=== PATIENT | male | born 1960 | race African-American/Black ===

== ENCOUNTER 2020-11-14 01:07 | Inpatient (IN) | payer MEDICARE, MEDICAID ==
[~2020-11-14] VITALS: Ht 152.4 cm; Wt 62.6 kg
--- NOTE | 2020-11-14 01:49 | Emergency Room Report ---
History of Present Illness General Chief Complaint: Generalized Weakness Source: Patient Present Illness HPI Disclaimer: Please note that this report is being documented using [employer] technology. This can lead to erroneous entry secondary to incorrect interpretation by the dictating instrument. HPI: 60-year-old male history of diabetes presents for generalized weakness. Patient was waiting outside the hospital for several hours and then checked in complaining of chills. States he is a diabetic consent not had insulin for 1 day. Reports shaking chills. Denies fever. Denies chest pain, palpitations, shortness of breath. Reports intermittent cough. Denies nausea or vomiting. States he has not been eating much lately. Reportedly, someone called this hospital several days ago booking for this patient. He may have been missing for the past few days. He states he lives with his brother but he is a very poor historian. He does not provide much specific information. PMH: Diabetes PSH: Reviewed Allergies: Denied Social Hx: Reviewed Allergies: Coded Allergies: No Known Allergies (Unverified , 11/14/20) COVID-19 Screening Contact w/high risk pt: No Experienced COVID-19 symptoms?: Yes COVID-19 Testing performed TOWER DIRECTOR: No Nursing Documentation-PMH Hx Diabetes: Yes Review of Systems All Other Systems: negative except mentioned in HPI Physical Exam Vital Signs Date Time Temp Pulse Resp B/P (MAP) Pulse Ox O2 Delivery O2 Flow Rate FiO2 11/14/20 01:33 99.3 110 18 155/84 (107) 94 Room Air General: Awake and alert, tremulous HEENT: NC/AT. EOMI. Cardiovascular: Tachycardia. S1 and S2 normal. No murmur appreciated Resp: Normal work of breathing. No cough, wheezing or crackles appreciated Abdomen: Abdomen is soft, nondistended. Nontender Skin: Intact. No abrasions, laceration or rash over the exposed skin MSK: Normal tone and bulk. Moving all extremities. No obvious deformity. Neuro: Awake and alert. Mentating appropriately. Procedures Critical Care Time Critical Care Time Total critical care time: Approximately 45 minutes Due to a high probability of clinically significant, life threatening deterioration, the patient required the highest level of preparedness to intervene emergently and I personally spent this critical care time directly and personally managing the patient. This critical care time included obtaining a history, examining the patient, pulse oximetry, ordering and reviewing studies, ordering treatments, evaluating response to treatment and updating management plan as needed, frequent reassessment and discussion with other providers as well as arranging for ultimate disposition. This critical to care time was performed to assess and manage the high probability of life-threatening deterioration that could result in multiorgan failure. This critical care time is separate from the separately billable procedures and treating other patients. Medical Decision Making Diagnostic Impression: Primary Impression: UTI (urinary tract infection) Additional Impressions: Pneumonia Person under investigation for COVID-19 Acute kidney failure Hyperkalemia ER Course 60-year-old male presents for evaluation of generalized weakness and cough. EKG is nonischemic shows slightly peaked T waves. Radiologist interpretation chest x-ray concerning for left lobe infiltrate versus edema. Patient also has evidence of urinary tract infection. Started on ceftriaxone azithromycin. White count within normal limits. Patient appears to be in renal failure with elevated potassium. Given calcium, insulin with dextrose, bicarb. Urine electrolytes sent. Continue IV fluids. Admitted to Dr. Paul who is panel physician today. Laboratory Tests Test 11/14/20 01:58 11/14/20 02:30 Urine Color Yellow Urine Appearance Slightly cloudy Urine pH 5 (4.5-8.0) Urine Specific [place] 1.025 (1.005-1.035) Urine Protein 4+ (NEGATIVE) H Urine Glucose (UA) Negative (NEGATIVE) Urine Ketones Negative (NEGATIVE) Urine Blood 2+ (NEGATIVE) H Urine Nitrite Negative (NEGATIVE) Urine Bilirubin Negative (NEGATIVE) Urine Urobilinogen Normal MG/DL (0.0-1.0) Urine Leukocyte Esterase Negative (NEGATIVE) Urine RBC 2-4 /HPF (0 - 0) H Urine WBC 0-2 /HPF (0 - 0) Urine Squamous Epithelial Cells Occasional /LPF Urine Amorphous Sediment Few /LPF (NONE) H Urine Bacteria Moderate /HPF (NONE) H Urine Hyaline Casts 0-2 /LPF (NONE) H Urine Opiates Screen Negative (NEGATIVE) Urine Barbiturates Screen Negative (NEGATIVE) Phencyclidine (PCP) Screen Negative (NEGATIVE) Urine Amphetamines Screen Negative (NEGATIVE) Urine Benzodiazepines Screen Negative (NEGATIVE) Urine Cocaine Screen Negative (NEGATIVE) Urine Marijuana (THC) Screen Negative (NEGATIVE) White Blood Count 8.1 K/UL (4.8-10.8) Red Blood Count 5.96 M/UL (4.70-6.10) Hemoglobin 12.8 G/DL (14.2-18.0) L Hematocrit 43.4 % (42.0-52.0) Mean Corpuscular Volume 73 FL (80-99) L Mean Corpuscular Hemoglobin 21.5 PG (27.0-31.0) L Mean Corpuscular Hemoglobin Concent 29.5 G/DL (32.0-36.0) L Red Cell Distribution Width 14.3 % (11.6-14.8) Platelet Count 209 K/UL (150-450) Mean Platelet Volume 8.7 FL (6.5-10.1) Neutrophils (%) (Auto) 78.7 % (45.0-75.0) H Lymphocytes (%) (Auto) 10.3 % (20.0-45.0) L Monocytes (%) (Auto) 10.2 % (1.0-10.0) H Eosinophils (%) (Auto) 0.1 % (0.0-3.0) Basophils (%) (Auto) 0.7 % (0.0-2.0) Sodium Level 140 MMOL/L (136-145) Potassium Level 5.8 MMOL/L (3.5-5.1) H Chloride Level 105 MMOL/L (98-107) Carbon Dioxide Level 19 MMOL/L (21-32) L Anion Gap 16 mmol/L (5-15) H Blood Urea Nitrogen 74 mg/dL (7-18) H Creatinine 5.2 MG/DL (0.55-1.30) H Estimated Glomerular Filtration Rate 13.8 mL/min (>60) Glucose Level 255 MG/DL (74-106) H Calcium Level 9.3 MG/DL (8.5-10.1) Total Bilirubin 0.5 MG/DL (0.2-1.0) Aspartate Amino Transferase (AST) 34 U/L (15-37) Alanine Aminotransferase (ALT) 23 U/L (12-78) Alkaline Phosphatase 70 U/L (46-116) Troponin I 0.010 ng/mL (0.000-0.056) Total Protein 8.6 G/DL (6.4-8.2) H Albumin 3.2 G/DL (3.4-5.0) L Globulin 5.4 g/dL Albumin/Globulin Ratio 0.6 (1.0-2.7) L Serum Alcohol < 3 mg/dL EKG Diagnostic Results Troponin ordered: Yes When was troponin ordered?: Nov 14, 2020 EKG Time: 01:54 Rate: normal Rhythm: NSR ST Segments: no acute changes Other Impression Sinus rhythm, left axis, normal intervals, no ST segment changes. Rhythm Strip Diag. Results Rhythm Strip Time: 01:54 EP Interpretation: yes Rate: 90s Rhythm: NSR, no PVC's, no ectopy Chest X-Ray Diagnostic Results Chest X-Ray Diagnostic Results : Chest X-Ray Ordered: Yes # of Views/Limited/Complete: 1 View Indication: Other - Cough EP Interpretation: Yes Interpretation: no effusion, no pneumothorax, other - Left lobe infiltrate per radiology Impression: Other - Left lobe infiltrate per radiology Electronically Signed by: Electronically signed by Dr. Christiano Pollack MD Last Vital Signs Date Time Temp Pulse Resp B/P (MAP) Pulse Ox O2 Delivery O2 Flow Rate FiO2 11/14/20 01:33 99.3 110 18 155/84 (107) 94 Room Air Disposition: ADMITTED INPATIENT Condition: Serious Referrals: NOT CHOSEN IPA/,REFERRING (PCP) Christiano Pollack MD Nov 14, 2020 01:49
--- NOTE | 2020-11-14 01:50 | NUR ---
ED Nurse Note: Patient came in the ED with complaints of generalized weakness. Patient is alert oriented times 2, disiorented to time and situation.
--- NOTE | 2020-11-14 01:55 | NUR ---
Patient is forgetfull
[2020-11-14 02:05] LABS: APPEARANCE,URINE SLIGHTLY CLOUDY; BILIRUBIN, URINE NEGATIVE (NEGATIVE); GLUCOSE, URINE (UA) NEGATIVE (NEGATIVE); KETONES,URINE NEGATIVE (NEGATIVE); LEUKOCYTE ESTERASE ,URINE NEGATIVE (NEGATIVE); NITRITE,URINE NEGATIVE (NEGATIVE); PH,URINE 5 (4.5-8.0); PROTEIN,URINE 4+ (NEGATIVE); UROBILINOGEN,URINE NORMAL MG/DL (0.0-1.0)
[2020-11-14 02:08] LABS: COLOR,URINE YELLOW
--- NOTE | 2020-11-14 02:23 | Diagnostic Imaging Report ---
EXAM: XR Chest, 1 View CLINICAL HISTORY: WEAK TECHNIQUE: Frontal view of the chest. COMPARISON: No relevant imaging studies available. FINDINGS: Cardiac, mediastinal, and hilar contours are unremarkable. Left mid/lower lobe hazy opacity. Right lung is clear. Suspect chronic irritation lung disease. No pneumothorax or large pleural effusion. No acute skeletal findings. IMPRESSION: Left mid/lower lobe hazy opacity, which may represent pleural fluid with adjacent atelectasis or infiltrate.
[2020-11-14 02:38] LABS: BASOPHILS % (AUTO) 0.7 % (0.0-2.0); EOSINOPHILS % (AUTO) 0.1 % (0.0-3.0); HEMATOCRIT 43.4 % (42.0-52.0); HEMOGLOBIN 12.8 G/DL (14.2-18.0); LYMPHOCYTES % (AUTO) 10.3 % (20.0-45.0); MEAN CORPUSCULAR VOLUME 73 FL (80-99); MONOCYTES % (AUTO) 10.2 % (1.0-10.0); NEUTROPHILS % (AUTO) 78.7 % (45.0-75.0); PLATELET COUNT 209 K/UL (150-450); RED BLOOD COUNT 5.96 M/UL (4.70-6.10); RED CELL DISTRIBUTION WIDTH 14.3 % (11.6-14.8); WHITE BLOOD COUNT 8.1 K/UL (4.8-10.8)
[2020-11-14] MEDS ORDERED: Azithromycin 500 MG in NS 275 ML IV ONE (02:45)
[2020-11-14] MEDS ORDERED: cefTRIAXone 1 GM in NS 55 ML IVPB ONE (02:45)
[2020-11-14 02:56] LABS: CALCIUM 9.3 MG/DL (8.5-10.1); CREATININE 5.2 MG/DL (0.55-1.30); POTASSIUM 5.8 MMOL/L (3.5-5.1)
[2020-11-14 03:00] LABS: ALBUMIN 3.2 G/DL (3.4-5.0); ALBUMIN/GLOBULIN RATIO 0.6 (1.0-2.7); BILIRUBIN,TOTAL 0.5 MG/DL (0.2-1.0)
--- NOTE | 2020-11-14 03:00 | NUR ---
Patient is in bed resting, in no acute distress. vitals stable. Denies any pain or discomfort.
[2020-11-14] MEDS ORDERED: Sodium Bicarbonate 50ml Carp IV ONE (03:15)
[2020-11-14] MEDS ORDERED: Calcium Gluconate 1gm/10ml vial IVP ONE (03:15)
[2020-11-14] MEDS ORDERED: Sodium Chloride 2,200 ML IVLG ONE (03:15)
[2020-11-14] MEDS ORDERED: Insulin Human Regular 100units/ml 3ml IV ONE (03:15)
[2020-11-14] MEDS ORDERED: Sodium Polystyrene Sulfonate 15gm Powder ORAL ONE (03:30)
[2020-11-14] MEDS ORDERED: Morphine Sulfate 2mg/ml Inj(IV/IM USE ONLY) IVP PRN (03:45)
--- NOTE | 2020-11-14 04:45 | NUR ---
ED Nurse Note: Report given to Lul
--- NOTE | 2020-11-14 04:50 | NUR ---
Bravo cath inserted, well tolerated.
--- NOTE | 2020-11-14 05:00 | NUR ---
NURSE NOTES: Pt received from MILTON Escobar. Pt is resting comfortably in bed c/o of chilliness with shaking. Pt is A/Ox4 with periods of confusion; pt is on bedrest due to weakness and forgets limitations. Pt has cardiac monitoring ST and asymptomatic. Pt is breathing unlabored on RA. Pt admitting VS T 100.2 T103 BP166/90 O296% R 22. Pt has RAC22G SL patent with dressing dry and intact. Bed is locked in lowest position with call light within reach. Dr Paul has been messaged for admitting orders and awaiting response. Will continue to monitor.
--- NOTE | 2020-11-14 05:00 | NUR ---
Patient transferred to [facility].
[2020-11-14 05:18] VITALS: BP 145/92
[2020-11-14 05:35] VITALS: BP 166/90
--- NOTE | 2020-11-14 07:01 | NUR ---
NURSE HAND-OFF REPORT: Important Events on Shift:Pt admitted to tele. Awaiting callback from MD for orders. Pt had fever 100.2. Patient Status: Stable Diet: TBD Pending Orders: Pending Results/Labs: Pending MD notification: Latest Vital Signs: Temperature 100.2 , Pulse 110 , B/P 166 /90 , Respiratory Rate 22 , O2 SAT 96 , Room Air, O2 Flow Rate . Vital Sign Comment: VSS EKG Rhythm: Sinus Tachycardia Rhythm change?: N MD Notified?: - MD Response: Latest [place] Fall Score: 60 Fall Risk: High Risk Safety Measures: Call light Within Reach, Bed Alarm Zone 2, Side Rails Side Rails x2, Bed position Low and Locked. Fall Precautions: Yellow Socks Door Sign Report given to MILTON Rea.
[2020-11-14 08:00] VITALS: BP 137/95
[2020-11-14] MEDS ORDERED: Varibar Nectar 240ml MC PRN (08:00)
[2020-11-14] MEDS ORDERED: Varibar Pudding 230ml MC PRN (08:00)
[2020-11-14] MEDS ORDERED: Varibar Honey 250ml MC PRN (08:00)
[2020-11-14] MEDS ORDERED: Varibar Thin Liquid powder 148gm MC PRN (08:00)
--- NOTE | 2020-11-14 08:08 | NUR ---
NURSE NOTES: Patient seen in bed in semifowlers position with no acute signs of distress and no complaints of pain 0/10. The patient is on room air with oxygen saturation within normal limits. The patient has a R AC 22G IV that is clean patent intact and saline locked. The patient bed is in lowest position, locked, side rails x3, bed alarm in zone 1 and cll light within reach.
--- NOTE | 2020-11-14 10:27 | Consultation ---
Consult Note Consult Note Asked to evaluate the patient at the request of HPI: 60-year-old male history of diabetes presents for generalized weakness. Patient was waiting outside the hospital for several hours and then checked in complaining of chills. States he is a diabetic consent not had insulin for 1 day. Reports shaking chills. Denies fever. Denies chest pain, palpitations, shortness of breath. Reports intermittent cough. Denies nausea or vomiting. States he has not been eating much lately. Reportedly, someone called this hospital several days ago booking for this patient. He may have been missing for the past few days. He states he lives with his brother but he is a very poor historian. He does not provide much specific information. PMH: Diabetes PSH: Reviewed Allergies: Denied Social Hx: Reviewed Allergies: No Known Allergies (Unverified , 11/14/20) COVID-19 Screening Contact w/high risk pt: No Experienced COVID-19 symptoms?: Yes COVID-19 Testing performed ELECTROSTATIC POWDER COATING TECHNICIAN: No Hx Diabetes: Yes Vital Signs Date Time Temp Pulse Resp B/P (MAP) Pulse Ox O2 Delivery O2 Flow Rate FiO2 11/14/20 01:33 99.3 110 18 155/84 (107) 94 Room Air PHYSICAL EXAMINATION: VITAL SIGNS: T-max is 100.2, current temperature 99, pulse 95, blood pressure is 137/95. HEAD AND NECK: [place] conjunctivae. Poor dentition. HEART: Normal rate. LUNGS: Clear. The patient is on room air oxygen. ABDOMEN: Soft. EXTREMITY: Has no edema. NEUROLOGIC: He is awake, alert, oriented x3. LABORATORY AND DIAGNOSTIC DATA: Sodium 140, potassium 5.8, chloride 105, bicarb 19, BUN 74, creatinine 5.2, glucose 255. WBC 8.1, hemoglobin 12.8, hematocrit 43.4, platelets 209. He has decrease in lymphocytes and increasing monocytes. Chest x-ray showed mild left mid lower lobe basal opacity may represent effusion, atelectasis or infiltrate. UA showed wbc of 0 to 2, bacteria moderate. . Assessment/Plan Imp: Acute on chronic renal failure Hyperkalemia UTI Pneumonia Diabetes mellitus Sugg: Renal diet Kidney ultrasound Kayexalate Flomax Blood pressure and blood sugar in check Meng Cha MD Nov 14, 2020 10:27
[2020-11-14] MEDS ORDERED: Sodium Polystyrene Sulfonate 15gm Powder ORAL SCH (10:30)
[2020-11-14] MEDS: Tamsulosin 0.4mg cap ORAL SCH ×2 (11:00→17:37)
--- NOTE | 2020-11-14 11:09 | Diagnostic Imaging Report ---
EXAM: US Retroperitoneal Limited, Renal CLINICAL HISTORY: RENAL-A TECHNIQUE: Real-time limited ultrasound of the retroperitoneum with image documentation. COMPARISON: No relevant prior studies available. FINDINGS: Right kidney: The right kidney measures 9.4 x 4.8 x 4.3 cm. Normal cortical thickness. No visible parenchymal lesions. No visible stones. No hydronephrosis. Left kidney: The left kidney measures 9.4 x 5.1 x 4.5 cm. Normal cortical thickness. No visible parenchymal lesions. No visible stones. No hydronephrosis. Bladder: Bravo catheter in the decompressed bladder lumen. IMPRESSION: No acute findings.
--- NOTE | 2020-11-14 11:30 | NUR ---
NURSE NOTES: Contacted Dr. Irving for insulin sliding scale for patient
--- NOTE | 2020-11-14 11:47 | Consultation ---
History of Present Illness General Date patient seen: Nov 14, 2020 Reason for Hospitalization: Generalized Weakness Present Illness HPI 60-year-old male history of diabetes presents for generalized weakness. Patient was waiting outside the hospital for several hours and then checked in complaining of chills. States he is a diabetic consent not had insulin for 1 day. Reports shaking chills. Denies fever. Denies chest pain, palpitations, shortness of breath. Reports intermittent cough. Denies nausea or vomiting. States he has not been eating much lately. Reportedly, someone called this hospital several days ago booking for this patient. He may have been missing for the past few days. He states he lives with his brother but he is a very poor historian. He does not provide much specific information. On admission patient identified to have renal insufficiency. Asked by nephrology to evaluate for considerations or potential of temporary dialysis catheter or dialysis access insertion. Patient seen, patient evaluate, chart reviewed case discussed with medical teams and nephrology. Allergies: Coded Allergies: No Known Allergies (Unverified , 11/14/20) COVID-19 Screening Contact w/high risk pt: No Experienced COVID-19 symptoms?: Yes Coronavirus symptoms experienc: Fever (T>100.4F or >38C), Fatigue, Cough Patient History Limited by: medical condition History Provided By: Patient, Medical Record, PMD Healthcare decision maker Resuscitation status Advanced Directive on File Past Medical/Surgical History Past Medical/Surgical History: (1) Hyperkalemia (2) Acute kidney failure (3) Person under investigation for COVID-19 (4) Pneumonia (5) UTI (urinary tract infection) Review of Systems Review of Symptoms General ROS: no weight loss or fever Psychological ROS: no depression or mood changes, no memory loss Ophthalmic ROS: no visual changes or eye irritation ENT ROS: no nasal congestion, hearing loss, dizziness Allergy and Immunology ROS: no allergic symptoms or urticaria Hematological and Lymphatic ROS: no swollen glands, unusual bleeding or bruising Endocrine ROS: no polyuria, polydipsia, weight changes, temperature intolerance Respiratory ROS: no cough, shortness of breath, or wheezing Cardiovascular ROS: no chest pain or dyspnea on exertion Gastrointestinal ROS: denies abdominal pain, bright red blood in stool. Musculoskeletal ROS: no myalgias or arthralgias Neurological ROS: no TIA or stroke symptoms Dermatological ROS: no new or changing skin lesions, rashes or pruritis Physical Exam Physical Exam General appearance: alert, cooperative, no distress, appears stated age Head: Normocephalic, without obvious abnormality, atraumatic Eyes: conjunctivae/corneas clear. PERRL, EOM's intact. Fundi benign Throat: Lips, mucosa, and tongue normal. Teeth and gums normal Neck: supple, symmetrical, trachea midline, no adenopathy, thyroid: not enlarged, symmetric, no tenderness/mass/nodules, no carotid bruit and no JVD Lungs: clear to auscultation bilaterally Heart: regular rate and rhythm, S1, S2 normal, no murmur, click, rub or gallop Abdomen: soft, non-tender. Bowel sounds normal. No masses, no organomegaly Extremities: extremities normal, atraumatic, no cyanosis or edema Pulses: 2+ and symmetric Skin: Skin color, texture, turgor normal. No rashes or lesions Neurologic: Grossly normal Last 24 Hour Vital Signs Date Time Temp Pulse Resp B/P (MAP) Pulse Ox O2 Delivery O2 Flow Rate FiO2 11/14/20 09:00 Room Air 11/14/20 08:00 99.0 95 18 137/95 (109) 93 11/14/20 05:35 Room Air 11/14/20 05:35 102 11/14/20 05:35 100.2 110 22 166/90 (115) 96 11/14/20 05:18 99.3 18 145/92 100 Room Air 11/14/20 05:18 94 16 Room Air 11/14/20 01:33 99.3 110 18 155/84 (107) 94 Room Air Intake and Output 11/13/20 11/14/20 19:00 07:00 Intake Total 1400 ml Output Total 650 ml Balance 750 ml Intake Oral 400 ml IV Total 1000 ml Output Urine Total 650 ml # Voids 2 # Bowel Movements 1 Laboratory Tests Test 11/14/20 01:58 11/14/20 02:30 Urine Color Yellow Urine Appearance Slightly cloudy Urine pH 5 (4.5-8.0) Urine Specific [place] 1.025 (1.005-1.035) Urine Protein 4+ (NEGATIVE) H Urine Glucose (UA) Negative (NEGATIVE) Urine Ketones Negative (NEGATIVE) Urine Blood 2+ (NEGATIVE) H Urine Nitrite Negative (NEGATIVE) Urine Bilirubin Negative (NEGATIVE) Urine Urobilinogen Normal MG/DL (0.0-1.0) Urine Leukocyte Esterase Negative (NEGATIVE) Urine RBC 2-4 /HPF (0 - 0) H Urine WBC 0-2 /HPF (0 - 0) Urine Squamous Epithelial Cells Occasional /LPF Urine Amorphous Sediment Few /LPF (NONE) H Urine Bacteria Moderate /HPF (NONE) H Urine Hyaline Casts 0-2 /LPF (NONE) H Urine Random Sodium < 20 mmol/L (20-110) L Urine Random Chloride 39 mmol/L (55-125) L Urine Creatinine 348.4 MG/DL (30.0-125.0) H Urine Potassium Timed 51 mmol/L (12-62) Urine Opiates Screen Negative (NEGATIVE) Urine Barbiturates Screen Negative (NEGATIVE) Phencyclidine (PCP) Screen Negative (NEGATIVE) Urine Amphetamines Screen Negative (NEGATIVE) Urine Benzodiazepines Screen Negative (NEGATIVE) Urine Cocaine Screen Negative (NEGATIVE) Urine Marijuana (THC) Screen Negative (NEGATIVE) White Blood Count 8.1 K/UL (4.8-10.8) Red Blood Count 5.96 M/UL (4.70-6.10) Hemoglobin 12.8 G/DL (14.2-18.0) L Hematocrit 43.4 % (42.0-52.0) Mean Corpuscular Volume 73 FL (80-99) L Mean Corpuscular Hemoglobin 21.5 PG (27.0-31.0) L Mean Corpuscular Hemoglobin Concent 29.5 G/DL (32.0-36.0) L Red Cell Distribution Width 14.3 % (11.6-14.8) Platelet Count 209 K/UL (150-450) Mean Platelet Volume 8.7 FL (6.5-10.1) Neutrophils (%) (Auto) 78.7 % (45.0-75.0) H Lymphocytes (%) (Auto) 10.3 % (20.0-45.0) L Monocytes (%) (Auto) 10.2 % (1.0-10.0) H Eosinophils (%) (Auto) 0.1 % (0.0-3.0) Basophils (%) (Auto) 0.7 % (0.0-2.0) Sodium Level 140 MMOL/L (136-145) Potassium Level 5.8 MMOL/L (3.5-5.1) H Chloride Level 105 MMOL/L (98-107) Carbon Dioxide Level 19 MMOL/L (21-32) L Anion Gap 16 mmol/L (5-15) H Blood Urea Nitrogen 74 mg/dL (7-18) H Creatinine 5.2 MG/DL (0.55-1.30) H Estimat Glomerular Filtration Rate 13.8 mL/min (>60) Glucose Level 255 MG/DL (74-106) H Calcium Level 9.3 MG/DL (8.5-10.1) Total Bilirubin 0.5 MG/DL (0.2-1.0) Aspartate Amino Transf (AST/SGOT) 34 U/L (15-37) Alanine Aminotransferase (ALT/SGPT) 23 U/L (12-78) Alkaline Phosphatase 70 U/L (46-116) Troponin I 0.010 ng/mL (0.000-0.056) Total Protein 8.6 G/DL (6.4-8.2) H Albumin 3.2 G/DL (3.4-5.0) L Globulin 5.4 g/dL Albumin/Globulin Ratio 0.6 (1.0-2.7) L Serum Alcohol < 3 mg/dL Height (Feet): 5 Height (Inches): 11.00 Weight (Pounds): 138 Medications Current Medications Medications (Trade) Dose Ordered Sig/Aminah Route PRN Reason Start Time Stop Time Status Last Admin Dose Admin Acetaminophen (Tylenol) 500 mg Q4H PRN ORAL Temp >100.5 11/14/20 07:30 12/14/20 07:29 Barium Sulfate (Varibar Honey) 250 ml NOW PRN MC RAD 11/14/20 08:00 11/17/20 07:57 Barium Sulfate (Varibar [place]) 240 ml NOW PRN MC RAD 11/14/20 08:00 11/17/20 07:57 Barium Sulfate (Varibar Pudding) 230 ml NOW PRN MC RAD 11/14/20 08:00 11/17/20 07:57 Barium Sulfate (Varibar Thin Liquid powder) 148 gm NOW PRN MC RAD 11/14/20 08:00 11/17/20 07:57 Ceftriaxone Sodium 1 gm/ Dextrose 55 ml @ 110 mls/hr Q24H IVPB 11/15/20 03:00 11/22/20 02:59 Docusate Sodium (Colace) 100 mg THREE TIMES A DAY ORAL 11/14/20 13:00 12/14/20 12:59 Pantoprazole (Protonix) 40 mg EVERY 12 HOURS ORAL 11/14/20 11:00 12/14/20 10:59 11/14/20 11:00 Sodium Polystyrene Sulfonate (Kayexalate) 45 gm ONCE ORAL 11/14/20 10:30 11/14/20 12:00 11/14/20 11:01 Tamsulosin HCl (Flomax) 0.4 mg BID ORAL 11/14/20 11:00 12/14/20 10:59 11/14/20 11:00 Assessment/Plan Problem List: (1) Hyperkalemia ICD Codes: E87.5 - Hyperkalemia SNOMED: 81912363 (2) Acute kidney failure Assessment & Plan: 60-year-old male acute renal failure hyperkalemia renal insufficiency. Patient evaluated is a candidate for temporary hemodialysis access for renal recovery. Currently IV fluids medications and under work-up and assessment for medical management prior to dialysis. If improves will hold on temporary hemodialysis access if worsening will place temporary dialysis access initiate dialysis and if necessary in future considerations of more permanent access. Thank you Chandni rojas patient's care will follow with recommendations continue trending labs fluids and current medical management ICD Codes: N17.9 - Acute kidney failure, unspecified SNOMED: 31766290 (3) Person under investigation for COVID-19 ICD Codes: Z20.822 - Contact with and (suspected) exposure to COVID-19 SNOMED: 857585061 (4) UTI (urinary tract infection) ICD Codes: N39.0 - Urinary tract infection, site not specified SNOMED: 72585645 (5) Pneumonia ICD Codes: J18.9 - Pneumonia, unspecified organism SNOMED: 329202410 Favian Temple Nov 14, 2020 11:47
[2020-11-14 12:00] VITALS: BP 158/87
[2020-11-14] MEDS: Docusate 100mg cap ORAL SCH ×2 (12:17→17:36)
--- NOTE | 2020-11-14 12:17 | NUR ---
NURSE NOTES: Held patients 1300 colace due to diarrhea from kayexalate that was ordered by .
--- NOTE | 2020-11-14 12:24 | Cardiology Report ---
APPROVED REPORT EKG Measurement Heart [id number] [id number] <Conclusion> Normal sinus rhythm Possible Left atrial enlargement Left anterior fascicular block Abnormal ECG
--- NOTE | 2020-11-14 13:14 | Consultation ---
DATE OF CONSULTATION: 11/14/2020 INFECTIOUS DISEASE CONSULTATION CONSULTING PHYSICIAN: Gerber Vallejo MD. PRIMARY ATTENDING PHYSICIAN: Hira Paul MD. REASON FOR CONSULTATION: Pneumonia. HISTORY OF PRESENT ILLNESS: This is a 60-year-old male, admitted early this morning. According to ER doctor notes, complaining of weakness. He was waiting outside of the hospital for several hours check-in. He is diabetic. He had no insulin for one day, still has shortness of breath, coughing. It was found the patient has acute renal failure and hyperkalemia and hyperglycemia. PAST MEDICAL HISTORY: Diabetes mellitus on insulin. ALLERGIES: No known drug allergy. MEDICATIONS: Getting Colace, Protonix, Kayexalate, got a dose of ceftriaxone. SOCIAL HISTORY: Single. Denies alcohol, drug abuse, smoking. REVIEW OF SYSTEMS: As per history of present illness. PHYSICAL EXAMINATION: VITAL SIGNS: T-max is 100.2, current temperature 99, pulse 95, blood pressure is 137/95. HEAD AND NECK: Friedens conjunctivae. Poor dentition. HEART: Normal rate. LUNGS: Clear. The patient is on room air oxygen. ABDOMEN: Soft. EXTREMITY: Has no edema. NEUROLOGIC: He is awake, alert, oriented x3. LABORATORY AND DIAGNOSTIC DATA: Sodium 140, potassium 5.8, chloride 105, bicarb 19, BUN 74, creatinine 5.2, glucose 255. WBC 8.1, hemoglobin 12.8, hematocrit 43.4, platelets 209. He has decrease in lymphocytes and increasing monocytes. Chest x-ray showed mild left mid lower lobe basal opacity may represent effusion, atelectasis or infiltrate. UA showed wbc of 0 to 2, bacteria moderate. IMPRESSION: Pneumonia. He has acute renal failure, hyperkalemia. diabetes mellitus with hyperglycemia. RECOMMENDATIONS: We will continue with ceftriaxone. We will follow up the cultures and COVID-19 test. We will follow up the renal ultrasound. At the end of my exam, I thank Dr. Paul for involving me in the care of this patient. Gerber Vallejo M.D. DR: CARMEN JOB#: [id number] CC: GABRIELE
[2020-11-14 16:00] VITALS: BP 155/82
[2020-11-14] MEDS: NovoLOG Insulin Flexpen SUBQ SCH ×3 (16:50→20:48)
--- NOTE | 2020-11-14 19:33 | NUR ---
NURSE HAND-OFF REPORT: Important Events on Shift:[Renal US done, IV fluids ordered, ] Patient Status: [Full code] Diet: [Renal Puree] Pending Orders: [N/A] Pending Results/Labs:[N/A] Pending MD notification:[N/A] Latest Vital Signs: Temperature 99.5 , Pulse 87 , B/P 155 /82 , Respiratory Rate 18 , O2 SAT 93 , Room Air, O2 Flow Rate . Vital Sign Comment: [] EKG Rhythm: Sinus Rhythm Rhythm change?: N MD Notified?: - MD Response: Latest Layton Fall Score: 60 Fall Risk: High Risk Safety Measures: Call light Within Reach, Bed Alarm Zone 1, Side Rails Side Rails x2, Bed position Low and Locked. Fall Precautions: Patient Fall Education Report given to [MILTON Thakkar].
--- NOTE | 2020-11-14 19:34 | NUR ---
NURSE NOTES: Report received from MILTON Rea. Upon assessment pt is sleeping. A/Ox3; not oriented to time. PERRLA. 5-lead EKG shows SR at 80 bpm. BP elevated at 154/89. Saturating 96% on room air. Bravo draining well to gravity. Side rails up x2. Bed kept in lowest and locked position. Call light within reach. Will monitor.
--- NOTE | 2020-11-14 19:44 | History and Physical Report ---
DATE OF ADMISSION: 11/14/2020 HISTORY OF PRESENT ILLNESS: The patient, according to the ER doctor, was standing outside the hospital for hours until he decided to come in eventually for weakness. The patient might have organic brain syndrome. Apparently, the patient was missing for a few days and mental health social worker called the hospital looking for him. The patient is being admitted for possible pneumonia, urinary tract infection, hyperkalemia, acute renal failure, altered mental status. The patient also has semiformed stool. The patient apparently has history of diabetes and hypertension. The patient says no to everything. Denies fever or chills. Denies shortness of breath. Denies cough. Denies abdominal pain. Denies headache. Denies nausea or vomiting. PAST MEDICAL HISTORY: Significant for diabetes, hypertension, GERD. PAST SURGICAL HISTORY: None. ALLERGIES: No known allergies. MEDICATIONS: None. FAMILY HISTORY: Noncontributory. SOCIAL HISTORY: Denies history of smoking. Denies history of drug abuse. Denies history of alcohol abuse. He lives with his [id number]. REVIEW OF SYSTEMS: HEENT: Denies headaches. RESPIRATORY: Denies shortness of breath. Denies cough. CARDIOVASCULAR: Denies chest pain. GASTROINTESTINAL: Denies nausea, vomiting, or diarrhea. Does have semiformed stool. EXTREMITIES: Denies pain. WEAPONS SPECIALIST: Denies change in speech pattern. The patient, however, is a poor historian. PHYSICAL EXAMINATION: VITAL SIGNS: Temperature is 99.3, pulse 94, blood pressure 145/92. HEENT: PERRLA. NECK: Supple. No lymphadenopathy. CHEST: Clear to auscultation CARDIOVASCULAR: Regular rate and rhythm. No murmurs or extra sounds. GASTROINTESTINAL: Soft, nontender, nondistended. No organomegaly. EXTREMITIES: No edema. Moves all 4 extremities. NEUROLOGIC: Sensory intact to light touch. Reflexes equal on both sides. Oriented x2. LABORATORY DATA: WBC of 8.1, hemoglobin of 12.8, platelets 309. Sodium 140, potassium of 5.8, BUN of 74, creatinine of 5.2, glucose of 255, and troponin 0.015. ASSESSMENT AND PLAN: 1. Possible pneumonia. 2. Urinary tract infection. 3. Hyperkalemia. 4. Acute renal failure. 5. Altered mental status. I have consulted Dr. Gilbert Irving, Dr. Cha, Dr. Dr. Juan Miguel Javier to help with the management of the above-mentioned abnormal symptoms, abnormal imaging and finding, as well as abnormal labs. Antibiotics if any per Dr. Gerber Vallejo. Hira Paul M.D. DR: Lee JOB#: [id number] CC:
[2020-11-14 20:00] VITALS: BP 154/89
--- NOTE | 2020-11-14 20:29 | Consultation ---
DATE OF CONSULTATION: 11/14/2020 ENDOCRINOLOGY CONSULTATION CONSULTING PHYSICIAN: Gilbert Irving M.D. REFERRING PHYSICIAN: Hira Paul M.D. REASON FOR CONSULTATION: Diabetes management. HISTORY OF PRESENT ILLNESS: The patient is a 60-year-old male who is a very poor historian, presented to the hospital complaining of chills and generalized weakness. Apparently, the patient was waiting outside the hospital for several hours and then checked in complaining of chills. The patient stated that he is a diabetic and has not had insulin for 1 day. No fever. No other symptoms. Had intermittent cough. Has not been eating much lately, and apparently someone called this hospital looking for this patient, and he might be missing for the past few days. He stated he lives with his father, but is a very poor historian and all I know is he is taking insulin for his diabetes. PAST MEDICAL HISTORY: Diabetes. PAST SURGICAL HISTORY: Unknown. ALLERGIES: Denies. SOCIAL HISTORY: No smoking, alcohol, or drug use. MEDICATION AT HOME: Insulin, but not sure what type, what frequency, and what dose. REVIEW OF SYSTEMS: As per HPI. LABORATORY DATA: Sodium 140, potassium 5.8, chloride 105, bicarb 19, BUN 74, creatinine 5.2, glucose of 255. WBC 8, hemoglobin 12, hematocrit 42, platelets of 209. PHYSICAL EXAMINATION: VITAL SIGNS: Blood pressure 150/87, heart rate 110, temperature 98.1. Rest of the exam is deferred due to COVID isolation. DIAGNOSES: 1. Diabetes, out of control. 2. Renal failure. 3. Hypertension. 4. Confusion. PLAN: 1. Start Levemir 12 units at bedtime. 2. Start NovoLog 4 units before each meal. 3. NovoLog sliding scale before meals and at bedtime. 4. Hypoglycemia protocol is in order. Further adjustment according to blood glucose values. Thank you, Dr. Paul, for the courtesy of this consultation. Gilbert Irving M.D. DR: YULI JOB#: [id number] CC: GABRIELE
[2020-11-14] MEDS: Levemir Flexpen SUBQ SCH (20:47)
--- NOTE | 2020-11-14 22:07 | NUR ---
NURSE NOTES: BSG 212. Insulin given per S.S. Levemir given per protocol. Offered pt snack and juice for the night. No distress noted. Will monitor.
[2020-11-14] MEDS: Acetaminophen 500mg (ES) tab ORAL PRN (23:48)
--- NOTE | 2020-11-14 23:54 | NUR ---
NURSE NOTES: Temperature 100.5. Cooling measures initiated and tylenol given PRN. Will monitor.
[2020-11-15] VITALS: BP 154/91
[2020-11-15] MEDS: cefTRIAXone 1 GM in D5W 55 ML IVPB SCH (02:30)
[2020-11-15 04:00] VITALS: BP 146/67
--- NOTE | 2020-11-15 04:00 | NUR ---
NURSE NOTES: bed bath and oral care provided fluids offered as needed fever resolved. will monitor.
[2020-11-15] MEDS: NovoLOG Insulin Flexpen SUBQ SCH ×7 (05:24→20:36)
--- NOTE | 2020-11-15 06:30 | NUR ---
NURSE NOTES: Left message for Dr. Paul in regards to elevated trend of BP. No PRN or blood pressure medications observed. Awaiting further orders.
--- NOTE | 2020-11-15 06:32 | NUR ---
NURSE HAND-OFF REPORT: Important Events on Shift: Hypertensive, Fever resolved Patient Status: Stable Diet: Puree Renal Pending Orders: Pending Results/Labs: Pending MD notification: Rui Paul Latest Vital Signs: Temperature 99.9 , Pulse 92 , B/P 146 /67 , Respiratory Rate 18 , O2 SAT 96 , Room Air, O2 Flow Rate . Vital Sign Comment: Hypertension EKG Rhythm: Sinus Rhythm Rhythm change?: N MD Notified?: - MD Response: Latest Layton Fall Score: 60 Fall Risk: High Risk Safety Measures: Call light Within Reach, Bed Alarm Zone 1, Side Rails Side Rails x2, Bed position Low and Locked. Fall Precautions: Patient Fall Education Report given to MILTON Corona.
--- NOTE | 2020-11-15 07:05 | NUR ---
NURSE NOTES: Received report from MILTON Emery. Patient in bed resting, no active s/s cardiac, respiratory distress noticed at this time. Patient on room air, SR with HR 92. IV on right AC 22G, asymptomatic, patent, intact. Patient AOx3. Bed in lowest position, side rails upx3, call light within reach, bed alarm on, Will continue to monitor.
[2020-11-15 08:00] VITALS: BP 129/72
[2020-11-15] MEDS: Tamsulosin 0.4mg cap ORAL SCH ×2 (08:22→17:20)
[2020-11-15] MEDS: Docusate 100mg cap ORAL SCH ×3 (08:22→17:20)
[2020-11-15 08:23] LABS: BASOPHILS % (AUTO) 0.7 % (0.0-2.0); EOSINOPHILS % (AUTO) 1.3 % (0.0-3.0); HEMATOCRIT 39.7 % (42.0-52.0); HEMOGLOBIN 12.1 G/DL (14.2-18.0); LYMPHOCYTES % (AUTO) 15.5 % (20.0-45.0); MEAN CORPUSCULAR VOLUME 72 FL (80-99); MONOCYTES % (AUTO) 7.9 % (1.0-10.0); NEUTROPHILS % (AUTO) 74.6 % (45.0-75.0); PLATELET COUNT 211 K/UL (150-450); RED BLOOD COUNT 5.54 M/UL (4.70-6.10); RED CELL DISTRIBUTION WIDTH 14.2 % (11.6-14.8); WHITE BLOOD COUNT 5.5 K/UL (4.8-10.8)
[2020-11-15 08:51] LABS: ALANINE AMINOTRANSFERASE 24 U/L (12-78); ALBUMIN 2.3 G/DL (3.4-5.0); ALBUMIN/GLOBULIN RATIO 0.5 (1.0-2.7); ALKALINE PHOSPHATASE 57 U/L (46-116); ANION GAP 9 mmol/L (5-15); ASPARTATE AMINO TRANSFERASE 47 U/L (15-37); BILIRUBIN,TOTAL 0.3 MG/DL (0.2-1.0); BLOOD UREA NITROGEN 54 mg/dL (7-18); CALCIUM 7.8 MG/DL (8.5-10.1); CARBON DIOXIDE 26 MMOL/L (21-32); CHLORIDE 111 MMOL/L (98-107); CREATINE KINASE 933 U/L (26-308); CREATININE 3.3 MG/DL (0.55-1.30); FERRITIN 421 NG/ML (8-388); GAMMA GLUTAMYL TRANSPEPTIDASE 33 U/L (5-85); PHOSPHORUS 3.6 MG/DL (2.5-4.9); POTASSIUM 3.7 MMOL/L (3.5-5.1); SODIUM 146 MMOL/L (136-145)
[2020-11-15] MEDS: Acetaminophen 500mg (ES) tab ORAL PRN ×2 (09:11→20:35)
[2020-11-15 09:42] LABS: % IRON SATURATION 9 % (15-50); IRON 13 ug/dL (50-175); TOTAL IRON BINDING CAPACITY 145 ug/dL (250-450)
[2020-11-15] MEDS ORDERED: Tubing IV Secondary IV ONE (10:06)
[2020-11-15] MEDS ORDERED: 1/2 NS 1000ml IV ONE (10:06)
--- NOTE | 2020-11-15 11:37 | Surgery Progress Note ---
Surgery Progress Note Subjective Additional Comments doing well labs improved with fluids hold on HD line Objective Last 24 Hour Vital Signs Date Time Temp Pulse Resp B/P (MAP) Pulse Ox O2 Delivery O2 Flow Rate FiO2 11/15/20 09:41 100.8 11/15/20 09:00 Room Air 11/15/20 08:00 85 11/15/20 08:00 101.0 87 18 129/72 (91) 93 11/15/20 04:00 92 11/15/20 04:00 99.9 74 18 146/67 (93) 96 11/15/20 00:28 99.8 11/15/20 00:00 82 11/15/20 00:00 100.8 81 18 154/91 (112) 96 11/14/20 21:00 Room Air 11/14/20 20:00 78 11/14/20 20:00 99.1 81 18 154/89 (110) 94 11/14/20 16:00 87 11/14/20 16:00 99.5 71 18 155/82 (106) 93 11/14/20 12:00 98.1 90 18 158/87 (110) 94 11/14/20 12:00 86 I&O Intake and Output 11/14/20 11/15/20 19:00 07:00 Intake Total 873.75 ml 876.7 ml Output Total 800 ml 500 ml Balance 73.75 ml 376.7 ml Intake Oral 480 ml 50 ml IV Total 393.75 ml 826.7 ml Output Urine Total 500 ml Stool Total 800 ml # Bowel Movements 4 1 Cardiovascular: RSR Respiratory: decreased breath sounds Abdomen: soft, non-tender, present bowel sounds, non-distended Extremities: no edema, no tenderness, no cyanosis Laboratory Tests Test 11/15/20 07:30 White Blood Count 5.5 K/UL (4.8-10.8) Red Blood Count 5.54 M/UL (4.70-6.10) Hemoglobin 12.1 G/DL (14.2-18.0) L Hematocrit 39.7 % (42.0-52.0) L Mean Corpuscular Volume 72 FL (80-99) L Mean Corpuscular Hemoglobin 21.9 PG (27.0-31.0) L Mean Corpuscular Hemoglobin Concent 30.5 G/DL (32.0-36.0) L Red Cell Distribution Width 14.2 % (11.6-14.8) Platelet Count 211 K/UL (150-450) Mean Platelet Volume 9.4 FL (6.5-10.1) Neutrophils (%) (Auto) 74.6 % (45.0-75.0) Lymphocytes (%) (Auto) 15.5 % (20.0-45.0) L Monocytes (%) (Auto) 7.9 % (1.0-10.0) Eosinophils (%) (Auto) 1.3 % (0.0-3.0) Basophils (%) (Auto) 0.7 % (0.0-2.0) Sodium Level 146 MMOL/L (136-145) H Potassium Level 3.7 MMOL/L (3.5-5.1) Chloride Level 111 MMOL/L (98-107) H Carbon Dioxide Level 26 MMOL/L (21-32) Anion Gap 9 mmol/L (5-15) Blood Urea Nitrogen 54 mg/dL (7-18) H Creatinine 3.3 MG/DL (0.55-1.30) H Estimat Glomerular Filtration Rate 23.4 mL/min (>60) Glucose Level 101 MG/DL (74-106) # Hemoglobin A1c 8.2 % (4.3-6.0) H Uric Acid 8.5 MG/DL (2.6-7.2) H Calcium Level 7.8 MG/DL (8.5-10.1) L Phosphorus Level 3.6 MG/DL (2.5-4.9) Magnesium Level 1.9 MG/DL (1.8-2.4) Iron Level 13 ug/dL (50-175) L Total Iron Binding Capacity 145 ug/dL (250-450) L Percent Iron Saturation 9 % (15-50) L Unsaturated Iron Binding 132 ug/dL (112-346) Ferritin 421 NG/ML (8-388) H Total Bilirubin 0.3 MG/DL (0.2-1.0) Gamma Glutamyl Transpeptidase 33 U/L (5-85) Aspartate Amino Transf (AST/SGOT) 47 U/L (15-37) H Alanine Aminotransferase (ALT/SGPT) 24 U/L (12-78) Alkaline Phosphatase 57 U/L (46-116) Total Creatine Kinase 933 U/L (26-308) H C-Reactive Protein, Quantitative 13.6 mg/dL (0.00-0.90) H Pro-B-Type Natriuretic Peptide 433 pg/mL (0-125) H Total Protein 7.0 G/DL (6.4-8.2) Albumin 2.3 G/DL (3.4-5.0) L Globulin 4.7 g/dL Albumin/Globulin Ratio 0.5 (1.0-2.7) L Vitamin B12 Level > 2000 PG/ML (193-986) H Vitamin D 25-Hydroxy Pending 25-Hydroxy Vitamin D2 Pending 25-Hydroxy Vitamin D3 Pending Folate 56.4 NG/ML (8.6-58.9) Thyroid Stimulating Hormone (TSH) 0.530 uiU/mL (0.358-3.740) Plan Problems: (1) Hyperkalemia (2) Acute kidney failure Assessment & Plan: 60-year-old male acute renal failure hyperkalemia renal insufficiency. Patient evaluated is a candidate for temporary hemodialysis access for renal recovery. Currently IV fluids medications and under work-up and assessment for medical management prior to dialysis. If improves will hold on temporary hemodialysis access if worsening will place temporary dialysis access initiate dialysis and if necessary in future considerations of more permanent access. Thank you allowing me to participate in patient's care will follow with recommendations continue trending labs fluids and current medical management labs improved hold on HD line cont fluids (3) Person under investigation for COVID-19 (4) UTI (urinary tract infection) (5) Pneumonia Favian Temple Nov 15, 2020 11:37
--- NOTE | 2020-11-15 11:43 | General Progress Note ---
Subjective Allergies: Coded Allergies: No Known Allergies (Unverified , 11/14/20) Subjective events noted interval notes reviewed glucose improved Item Value Date Time Bedside Blood Glucose 103 mg/dl 11/15/20 1130 Bedside Blood Glucose 140 mg/dl H 11/15/20 0619 Bedside Blood Glucose 210 mg/dl H 11/14/20 2100 Bedside Blood Glucose 235 mg/dl H 11/14/20 1659 Bedside Blood Glucose 208 mg/dl H 11/14/20 1130 Objective Last 24 Hour Vital Signs Date Time Temp Pulse Resp B/P (MAP) Pulse Ox O2 Delivery O2 Flow Rate FiO2 11/15/20 09:41 100.8 11/15/20 09:00 Room Air 11/15/20 08:00 85 11/15/20 08:00 101.0 87 18 129/72 (91) 93 11/15/20 04:00 92 11/15/20 04:00 99.9 74 18 146/67 (93) 96 11/15/20 00:28 99.8 11/15/20 00:00 82 11/15/20 00:00 100.8 81 18 154/91 (112) 96 11/14/20 21:00 Room Air 11/14/20 20:00 78 11/14/20 20:00 99.1 81 18 154/89 (110) 94 11/14/20 16:00 87 11/14/20 16:00 99.5 71 18 155/82 (106) 93 11/14/20 12:00 98.1 90 18 158/87 (110) 94 11/14/20 12:00 86 Intake and Output 11/14/20 11/15/20 19:00 07:00 Intake Total 873.75 ml 876.7 ml Output Total 800 ml 500 ml Balance 73.75 ml 376.7 ml Intake Oral 480 ml 50 ml IV Total 393.75 ml 826.7 ml Output Urine Total 500 ml Stool Total 800 ml # Bowel Movements 4 1 Laboratory Tests 11/15/20 07:30: White Blood Count 5.5, Red Blood Count 5.54, Hemoglobin 12.1L, Hematocrit 39.7L, Mean Corpuscular Volume 72L, Mean Corpuscular Hemoglobin 21.9L, Mean Corpuscular Hemoglobin Concent 30.5L, Red Cell Distribution Width 14.2, Platelet Count 211, Mean Platelet Volume 9.4, Neutrophils (%) (Auto) 74.6, Lymphocytes (%) (Auto) 15.5L, Monocytes (%) (Auto) 7.9, Eosinophils (%) (Auto) 1.3, Basophils (%) (Auto) 0.7, Sodium Level 146H, Potassium Level 3.7, Chloride Level 111H, Carbon Dioxide Level 26, Anion Gap 9, Blood Urea Nitrogen 54H, Creatinine 3.3H, Estimat Glomerular Filtration Rate 23.4, Glucose Level 101#, Hemoglobin A1c 8.2H, Uric Acid 8.5H, Calcium Level 7.8L, Phosphorus Level 3.6, Magnesium Level 1.9, Iron Level 13L, Total Iron Binding Capacity 145L, Percent Iron Saturation 9L, Un saturated Iron Binding 132, Ferritin 421H, Total Bilirubin 0.3, Gamma Glutamyl Transpeptidase 33, Aspartate Amino Transf (AST/SGOT) 47H, Alanine Aminotransferase (ALT/SGPT) 24, Alkaline Phosphatase 57, Total Creatine Kinase 933H, C-Reactive Protein, Quantitative 13.6H, Pro-B-Type Natriuretic Peptide 433H, Total Protein 7.0, Albumin 2.3L, Globulin 4.7, Albumin/Globulin Ratio 0.5L , Vitamin B12 Level > 2000H, Vitamin D 25-Hydroxy [Pending], 25-Hydroxy Vitamin D2 [Pending], 25-Hydroxy Vitamin D3 [Pending], Folate 56.4, Thyroid Stimulating Hormone (TSH) 0.530 Height (Feet): 5 Height (Inches): 11.00 Weight (Pounds): 138 Objective Current Medications Medications (Trade) Dose Ordered Sig/Aminah Route PRN Reason Start Time Stop Time Status Last Admin Dose Admin Acetaminophen (Tylenol) 500 mg Q4H PRN ORAL Temp >100.5 11/14/20 07:30 12/14/20 07:29 11/15/20 09:11 Barium Sulfate (Varibar Honey) 250 ml NOW PRN MC RAD 11/14/20 08:00 11/17/20 07:57 Barium Sulfate (Varibar [place]) 240 ml NOW PRN MC RAD 11/14/20 08:00 11/17/20 07:57 Barium Sulfate (Varibar Pudding) 230 ml NOW PRN MC RAD 11/14/20 08:00 11/17/20 07:57 Barium Sulfate (Varibar Thin Liquid powder) 148 gm NOW PRN MC RAD 11/14/20 08:00 11/17/20 07:57 Ceftriaxone Sodium 1 gm/ Dextrose 55 ml @ 110 mls/hr Q24H IVPB 11/15/20 03:00 11/22/20 02:59 11/15/20 02:30 Dextrose (Dextrose 50%) 25 ml Q30M PRN IV Hypoglycemia 11/14/20 12:00 02/12/21 11:59 Dextrose (Dextrose 50%) 50 ml Q30M PRN IV Hypoglycemia 11/14/20 12:00 02/12/21 11:59 Docusate Sodium (Colace) 100 mg THREE TIMES A DAY ORAL 11/14/20 13:00 12/14/20 12:59 Insulin Aspart (NovoLOG) BEFORE MEALS AND HS SUBQ 11/14/20 16:30 02/12/21 16:29 11/15/20 05:24 Insulin Aspart (NovoLOG) 4 units NOVOTIAC SUBQ 11/14/20 16:50 02/12/21 16:49 11/15/20 05:25 Insulin Detemir (Levemir) 12 units BEDTIME SUBQ 11/14/20 21:00 02/12/21 20:59 11/14/20 20:47 Pantoprazole (Protonix) 40 mg EVERY 12 HOURS ORAL 11/14/20 11:00 12/14/20 10:59 11/15/20 08:22 Sodium Chloride 1,000 ml @ 75 mls/hr [id number] IV 11/14/20 13:45 12/14/20 13:44 11/15/20 02:30 Tamsulosin HCl (Flomax) 0.4 mg BID ORAL 11/14/20 11:00 12/14/20 10:59 11/15/20 08:22 Assessment/Plan Problem List: (1) Diabetes mellitus out of control ICD Codes: E11.65 - Type 2 diabetes mellitus with hyperglycemia SNOMED: 48899292, 275542580 (2) Hyperkalemia ICD Codes: E87.5 - Hyperkalemia SNOMED: 62471334 (3) Acute kidney failure ICD Codes: N17.9 - Acute kidney failure, unspecified SNOMED: 30280763 (4) Person under investigation for COVID-19 ICD Codes: Z20.822 - Contact with and (suspected) exposure to COVID-19 SNOMED: 130690363 (5) UTI (urinary tract infection) ICD Codes: N39.0 - Urinary tract infection, site not specified SNOMED: 65268024 (6) Pneumonia ICD Codes: J18.9 - Pneumonia, unspecified organism SNOMED: 429443957 Assessment/Plan: continue Levemir 12 units daily continue Novolog 4 units ac tid continue Novolog sliding scale ac Gilbert Irving MD Nov 15, 2020 11:43
[2020-11-15 12:00] VITALS: BP 126/75
--- NOTE | 2020-11-15 15:39 | Nephrology Progress Note ---
Assessment/Plan Problem List: (1) Acute kidney failure (2) Hyperkalemia (3) Diabetes mellitus out of control (4) Pneumonia (5) UTI (urinary tract infection) Assessment Acute on chronic renal failure Hyperkalemia UTI Pneumonia Diabetes mellitus Plan November 15: Labs reviewed. Renal parameters stable. Blood sugar better controlled. Medication list reviewed. Continue per current management. Hyperkalemia resolved. Continue to monitor renal parameters. Previously: Renal diet Kidney ultrasound Kayexalate Flomax Blood pressure and blood sugar in check Subjective ROS Limited/Unobtainable: No Constitutional: Reports: malaise, weakness Objective Objective Last 24 Hour Vital Signs Date Time Temp Pulse Resp B/P (MAP) Pulse Ox O2 Delivery O2 Flow Rate FiO2 11/15/20 12:00 99.7 87 18 126/75 (92) 96 11/15/20 12:00 77 11/15/20 09:41 100.8 11/15/20 09:00 Room Air 11/15/20 08:00 85 11/15/20 08:00 101.0 87 18 129/72 (91) 93 11/15/20 04:00 92 11/15/20 04:00 99.9 74 18 146/67 (93) 96 11/15/20 00:28 99.8 11/15/20 00:00 82 11/15/20 00:00 100.8 81 18 154/91 (112) 96 11/14/20 21:00 Room Air 11/14/20 20:00 78 11/14/20 20:00 99.1 81 18 154/89 (110) 94 11/14/20 16:00 87 11/14/20 16:00 99.5 71 18 155/82 (106) 93 Intake and Output 11/14/20 11/15/20 19:00 07:00 Intake Total 873.75 ml 876.7 ml Output Total 800 ml 500 ml Balance 73.75 ml 376.7 ml Intake Oral 480 ml 50 ml IV Total 393.75 ml 826.7 ml Output Urine Total 500 ml Stool Total 800 ml # Bowel Movements 4 1 Current Medications Medications (Trade) Dose Ordered Sig/Aminah Route PRN Reason Start Time Stop Time Status Last Admin Dose Admin Acetaminophen (Tylenol) 500 mg Q4H PRN ORAL Temp >100.5 11/14/20 07:30 12/14/20 07:29 11/15/20 09:11 Barium Sulfate (Varibar Honey) 250 ml NOW PRN MC RAD 11/14/20 08:00 11/17/20 07:57 Barium Sulfate (Varibar [place]) 240 ml NOW PRN MC RAD 11/14/20 08:00 11/17/20 07:57 Barium Sulfate (Varibar Pudding) 230 ml NOW PRN MC RAD 11/14/20 08:00 11/17/20 07:57 Barium Sulfate (Varibar Thin Liquid powder) 148 gm NOW PRN MC RAD 11/14/20 08:00 11/17/20 07:57 Ceftriaxone Sodium 1 gm/ Dextrose 55 ml @ 110 mls/hr Q24H IVPB 11/15/20 03:00 11/22/20 02:59 11/15/20 02:30 Dextrose (Dextrose 50%) 25 ml Q30M PRN IV Hypoglycemia 11/14/20 12:00 02/12/21 11:59 Dextrose (Dextrose 50%) 50 ml Q30M PRN IV Hypoglycemia 11/14/20 12:00 02/12/21 11:59 Docusate Sodium (Colace) 100 mg THREE TIMES A DAY ORAL 11/14/20 13:00 12/14/20 12:59 Insulin Aspart (NovoLOG) BEFORE MEALS AND HS SUBQ 11/14/20 16:30 02/12/21 16:29 11/15/20 05:24 Insulin Aspart (NovoLOG) 4 units NOVOTIAC SUBQ 11/14/20 16:50 02/12/21 16:49 11/15/20 05:25 Insulin Detemir (Levemir) 12 units BEDTIME SUBQ 11/14/20 21:00 02/12/21 20:59 11/14/20 20:47 Pantoprazole (Protonix) 40 mg EVERY 12 HOURS ORAL 11/14/20 11:00 12/14/20 10:59 11/15/20 08:22 Sodium Chloride 1,000 ml @ 75 mls/hr [id number] IV 11/14/20 13:45 12/14/20 13:44 11/15/20 02:30 Tamsulosin HCl (Flomax) 0.4 mg BID ORAL 11/14/20 11:00 12/14/20 10:59 11/15/20 08:22 Laboratory Tests 11/15/20 07:30: White Blood Count 5.5, Red Blood Count 5.54, Hemoglobin 12.1L, Hematocrit 39.7L, Mean Corpuscular Volume 72L, Mean Corpuscular Hemoglobin 21.9L, Mean Corpuscular Hemoglobin Concent 30.5L, Red Cell Distribution Width 14.2, Platelet Count 211, Mean Platelet Volume 9.4, Neutrophils (%) (Auto) 74.6, Lymphocytes (%) (Auto) 15.5L, Monocytes (%) (Auto) 7.9, Eosinophils (%) (Auto) 1.3, Basophils (%) (Auto) 0.7, Sodium Level 146H, Potassium Level 3.7, Chloride Level 111H, Carbon Dioxide Level 26, Anion Gap 9, Blood Urea Nitrogen 54H, Creatinine 3.3H, Estimat Glomerular Filtration Rate 23.4, Glucose Level 101#, Hemoglobin A1c 8.2H, Uric Acid 8.5H, Calcium Level 7.8L, Phosphorus Level 3.6, Magnesium Level 1.9, Iron Level 13L, Total Iron Binding Capacity 145L, Percent Iron Saturation 9L, Unsaturated Iron Binding 132, Ferritin 421H, Total Bilirubin 0.3, Gamma Glutamyl Transpeptidase 33, Aspartate Amino Transf (AST/SGOT) 47H, Alanine Aminotransferase (ALT/SGPT) 24, Alkaline Phosphatase 57, Total Creatine Kinase 933H, C-Reactive Protein, Quantitative 13.6H, Pro-B-Type Natriuretic Peptide 433H, Total Protein 7.0, Albumin 2.3L, Globulin 4.7, Albumin/Globulin Ratio 0.5L , Vitamin B12 Level > 2000H, Vitamin D 25-Hydroxy [Pending], 25-Hydroxy Vitamin D2 [Pending], 25-Hydroxy Vitamin D3 [Pending], Folate 56.4, Thyroid Stimulating Hormone (TSH) 0.530 Height (Feet): 5 Height (Inches): 11.00 Weight (Pounds): 138 Cardiovascular: normal rate Respiratory/Chest: decreased breath sounds Abdomen: distended Meng Cha MD Nov 15, 2020 15:39
[2020-11-15 16:00] VITALS: BP 121/70
--- NOTE | 2020-11-15 19:12 | NUR ---
NURSE HAND-OFF REPORT: Important Events on Shift: fever 101 @0800, now 99.0, on abx. Patient Status: stable Diet: renal Pending Orders: na Pending Results/Labs:COVID, PUI Pending MD notification:na Latest Vital Signs: Temperature 99.0 , Pulse 88 , B/P 121 /70 , Respiratory Rate 18 , O2 SAT 98 , Room Air, O2 Flow Rate . Vital Sign Comment: stable EKG Rhythm: Sinus Rhythm Rhythm change?: N MD Notified?: - MD Response: Latest Layton Fall Score: 60 Fall Risk: High Risk Safety Measures: Call light Within Reach, Bed Alarm Zone 1, Side Rails Side Rails x2, Bed position Low and Locked. Fall Precautions: Patient Fall Education Report given to MILTON Conrad.
--- NOTE | 2020-11-15 19:15 | NUR ---
NURSE NOTES: Pt received from MILTON Corona. Pt is resting comfortably in bed and states he does not want to be touched. Pt is A/Ox2 with irritation at situation; pt has generalized weakness and requires assistance out of the bed. Pt has cardiac monitoring ST and skin is hot to the touch. Pt is breathing slightly tachypneic on RA and sating well. Pt has RAC 22G running 1/2NS 75ml/hr patent with dressing dry and intact. Bed is locked in lowest position with call light within reach. Will continue to monitor.
[2020-11-15 20:00] VITALS: BP 132/67
[2020-11-15] MEDS: Levemir Flexpen SUBQ SCH (20:36)
--- NOTE | 2020-11-15 23:25 | General Progress Note ---
Subjective ROS Limited/Unobtainable: Yes Allergies: Coded Allergies: No Known Allergies (Unverified , 11/14/20) Objective Last 24 Hour Vital Signs Date Time Temp Pulse Resp B/P (MAP) Pulse Ox O2 Delivery O2 Flow Rate FiO2 11/15/20 21:05 99.1 11/15/20 21:00 Room Air 11/15/20 20:00 90 11/15/20 20:00 102.0 92 16 132/67 (88) 94 11/15/20 16:00 99.0 80 18 121/70 (87) 98 11/15/20 16:00 88 11/15/20 12:00 99.7 87 18 126/75 (92) 96 11/15/20 12:00 77 11/15/20 09:41 100.8 11/15/20 09:00 Room Air 11/15/20 08:00 85 11/15/20 08:00 101.0 87 18 129/72 (91) 93 11/15/20 04:00 92 11/15/20 04:00 99.9 74 18 146/67 (93) 96 11/15/20 00:28 99.8 11/15/20 00:00 82 11/15/20 00:00 100.8 81 18 154/91 (112) 96 Intake and Output 11/14/20 11/15/20 19:00 07:00 Intake Total 873.75 ml 876.7 ml Output Total 800 ml 500 ml Balance 73.75 ml 376.7 ml Intake Oral 480 ml 50 ml IV Total 393.75 ml 826.7 ml Output Urine Total 500 ml Stool Total 800 ml # Bowel Movements 4 1 Laboratory Tests 11/15/20 07:30: White Blood Count 5.5, Red Blood Count 5.54, Hemoglobin 12.1L, Hematocrit 39.7L, Mean Corpuscular Volume 72L, Mean Corpuscular Hemoglobin 21.9L, Mean Corpuscular Hemoglobin Concent 30.5L, Red Cell Distribution Width 14.2, Platelet Count 211, Mean Platelet Volume 9.4, Neutrophils (%) (Auto) 74.6, Lymphocytes (%) (Auto) 15.5L, Monocytes (%) (Auto) 7.9, Eosinophils (%) (Auto) 1.3, Basophils (%) (Auto) 0.7, Sodium Level 146H, Potassium Level 3.7, Chloride Level 111H, Carbon Dioxide Level 26, Anion Gap 9, Blood Urea Nitrogen 54H, Creatinine 3.3H, Estimat Glomerular Filtration Rate 23.4, Glucose Level 101#, Hemoglobin A1c 8.2H, Uric Acid 8.5H, Calcium Level 7.8L, Phosphorus Level 3.6, Magnesium Level 1.9, Iron Level 13L, Total Iron Binding Capacity 145L, Percent Iron Saturation 9L, Unsaturated Iron Binding 132, Ferritin 421H, Total Bilirubin 0.3, Gamma Glutamyl Transpeptidase 33, Aspartate Amino Transf (AST/SGOT) 47H, Alanine Aminotransferase (ALT/SGPT) 24, Alkaline Phosphatase 57, Total Creatine Kinase 933H, C-Reactive Protein, Quantitative 13.6H, Pro-B-Type Natriuretic Peptide 433H, Total Protein 7.0, Albumin 2.3L, Globulin 4.7, Albumin/Globulin Ratio 0.5L , Vitamin B12 Level > 2000H, Vitamin D 25-Hydroxy [Pending], 25-Hydroxy Vitamin D2 [Pending], 25-Hydroxy Vitamin D3 [Pending], Folate 56.4, Thyroid Stimulating Hormone (TSH) 0.530 Height (Feet): 5 Height (Inches): 11.00 Weight (Pounds): 138 Assessment/Plan Problem List: (1) Hyperkalemia ICD Codes: E87.5 - Hyperkalemia SNOMED: 43641304 (2) Acute kidney failure ICD Codes: N17.9 - Acute kidney failure, unspecified SNOMED: 20046802 (3) UTI (urinary tract infection) ICD Codes: N39.0 - Urinary tract infection, site not specified SNOMED: 23732169 (4) Pneumonia ICD Codes: J18.9 - Pneumonia, unspecified organism SNOMED: 086252139 (5) Diabetes mellitus out of control ICD Codes: E11.65 - Type 2 diabetes mellitus with hyperglycemia SNOMED: 45439562, 992661542 Status: progressing Assessment/Plan: pna uti lyte abnormality arf ams reviewed chart and labs Hira Paul MD Nov 15, 2020 23:25
--- NOTE | 2020-11-15 23:39 | Psychiatry Consultation ---
Psychiatry Consultation Psychiatry Consultation Chief Complaint: Generalized Weakness Allergies: Coded Allergies: No Known Allergies (Unverified , 11/14/20) Medication History Scheduled Amlodipine Besylate* (Amlodipine Besylate*), 2 TAB ORAL DAILY, (Reported) Ceftriaxone Sodium (Ceftriaxone), 1 GM IVPB DAILY, (Reported) Dorzolamide Hcl* (Trusopt*), 1 DROP BOTH EYES BID, (Reported) Furosemide* (Lasix*), 20 MG ORAL DAILY, (Reported) Insulin Aspart (Novolog Flexpen), 12 SUBQ TID, (Reported) Insulin NPH Human Isophane (NovoLIN N Flexpen), UNIT SQ AC, (Reported) Objective Data Height (Feet): 5 Height (Inches): 11.00 Weight (Pounds): 138 Behavior Mannerisms: good eye contact Mood: depressed, irritable, anxious Additional Comments: alert, oriented times self. Mood is agitated. Affect is blunted. Thought process, disorganized. Thought content, no suicidal or homicidal ideation. Cognition is impaired. Insight and judgment is impaired. ASSESSMENT: Cleghorn I Schizophrenia. Cleghorn II Deferred. Cleghorn III Failure to thrive. Cleghorn IV Low. Cleghorn V 20. PLAN: 1. Discontinue the Remeron, Zyprexa 10 mg at bedtime. 2. Increase the Ativan p.r.n. Kerrie Bullard MD Nov 15, 2020 23:39
[2020-11-16] VITALS: BP 106/56
--- NOTE | 2020-11-16 01:00 | NUR ---
NURSE NOTES: Pt temperature fluctuating between 101-103.4 F. Pt reports chills and has taken tylenol x2 with ice packs all over his body. Contacted Dr Vallejo about fever and received order for Blood Culture. Pt condition is weakened and below baseline from beginning of shift. Will carry out orders and continue to monitor.
[2020-11-16] MEDS: cefTRIAXone 1 GM in D5W 55 ML IVPB SCH (02:23)
[2020-11-16] MEDS: Acetaminophen 500mg (ES) tab ORAL PRN (02:23)
[2020-11-16 04:00] VITALS: BP 113/53
[2020-11-16] MEDS: NovoLOG Insulin Flexpen SUBQ SCH ×6 (05:25→21:00)
--- NOTE | 2020-11-16 06:44 | NUR ---
NURSE HAND-OFF REPORT: Important Events on Shift:Patient experienced fever throughout the shift fluctuating between 101-103 F somewhat relieved with ice pack cooling measures and tylenol administration. Dr Vallejo made aware and received new order for blood culture collection Patient Status: Fever, closer to baseline than middle of the night Diet: Renal Puree Pending Orders: Pending Results/Labs:AM Labs and BC Pending MD notification: Latest Vital Signs: Temperature 100.3 , Pulse 88 , B/P 113 /53 , Respiratory Rate 18 , O2 SAT 73 , Room Air, O2 Flow Rate . Vital Sign Comment: VSS, Temperature high EKG Rhythm: Sinus Rhythm Rhythm change?: N MD Notified?: - MD Response: Latest Layton Fall Score: 60 Fall Risk: High Risk Safety Measures: Call light Within Reach, Bed Alarm Zone 1, Side Rails Side Rails x2, Bed position Low and Locked. Fall Precautions: Patient Fall Education Report given to MILTON Smith.
[2020-11-16 06:48] LABS: BASOPHILS % (AUTO) 0.3 % (0.0-2.0); EOSINOPHILS % (AUTO) 0.3 % (0.0-3.0); HEMATOCRIT 35.2 % (42.0-52.0); HEMOGLOBIN 10.7 G/DL (14.2-18.0); LYMPHOCYTES % (AUTO) 16.2 % (20.0-45.0); MEAN CORPUSCULAR VOLUME 72 FL (80-99); MONOCYTES % (AUTO) 7.7 % (1.0-10.0); NEUTROPHILS % (AUTO) 75.6 % (45.0-75.0); PLATELET COUNT 183 K/UL (150-450); RED BLOOD COUNT 4.89 M/UL (4.70-6.10); RED CELL DISTRIBUTION WIDTH 13.8 % (11.6-14.8); WHITE BLOOD COUNT 5.2 K/UL (4.8-10.8)
[2020-11-16 07:17] LABS: ALANINE AMINOTRANSFERASE 24 U/L (12-78); ALBUMIN 2.1 G/DL (3.4-5.0); ALBUMIN/GLOBULIN RATIO 0.5 (1.0-2.7); ALKALINE PHOSPHATASE 51 U/L (46-116); ANION GAP 11 mmol/L (5-15); ASPARTATE AMINO TRANSFERASE 48 U/L (15-37); BILIRUBIN,TOTAL 0.3 MG/DL (0.2-1.0); BLOOD UREA NITROGEN 45 mg/dL (7-18); CALCIUM 7.8 MG/DL (8.5-10.1); CARBON DIOXIDE 23 MMOL/L (21-32); CHLORIDE 111 MMOL/L (98-107); CHOLESTEROL 102 MG/DL (< 200); CREATININE 3.3 MG/DL (0.55-1.30); HDL CHOLESTEROL 40 MG/DL (40-60); PHOSPHORUS 3.4 MG/DL (2.5-4.9); POTASSIUM 3.4 MMOL/L (3.5-5.1); SODIUM 145 MMOL/L (136-145); TRIGLYCERIDES 93 MG/DL (30-150)
[2020-11-16 07:33] LABS: CREATINE KINASE 677 U/L (26-308)
--- NOTE | 2020-11-16 07:53 | NUR ---
NURSE NOTES: Report received from Lul ROSE. Patient seen on rounds, asleep but easily rousable, on rrom air with no signs of acute distress, eliazar reports febrile episode Tmax 103F, given PRN meds and cooling measures institued, latest temp 100.4F, was made aware with new orders given. PIV on right AC patent and infusing 1/2 NS @ 75ml/hr. Bravo cath secured and draining. Bed low and locked, siderails up x2, call light placed within reach and instructed to call nurse for assistance. Will continue to monitor.
[2020-11-16 08:00] VITALS: BP 161/90
--- NOTE | 2020-11-16 09:09 | NUR ---
CASE MANAGEMENT: 60 YR OLD MALE WALKED INTO ER CC: WEAKNESS AND DIFFICULTY AMBULATING SI: PNEUMONIA. UTI. JUDD. PUI 99.4 110 18 155/84 94% ON RA K+5.8 BUN+74 CR+5.2 GLUCOSE+255 IS: IV ROCEPHIN IV AZITHROMYCIN IV CA GLUCONATE IV INSULIN IV NAHCO3 X1 IVF NS KAYEXALATE PO URINE CX CHEST XRAY NOVEL COVID : TO TELEMETRY PLAN: HOME SAFETY EVAL
[2020-11-16] MEDS: Docusate 100mg cap ORAL SCH ×3 (09:16→17:11)
[2020-11-16] MEDS: Tamsulosin 0.4mg cap ORAL SCH ×2 (09:16→17:11)
[2020-11-16] MEDS: Piperacillin/Tazobactam 3.375 GM in NS 110 ML IVPB SCH ×2 (09:24→21:52)
--- NOTE | 2020-11-16 11:22 | Infectious Diseases Prog Note ---
Assessment/Plan Assessment/Plan antibiotics : zosyn A 1. pneumonia covid 19 pending 2. diabetes mellitus 3. renal failure P 1. continue zosyn 2. will follow up cultures 3. continue isolation Subjective ROS Limited/Unobtainable: Yes Allergies: Coded Allergies: No Known Allergies (Unverified , 11/14/20) Objective Last 24 Hour Vital Signs Date Time Temp Pulse Resp B/P (MAP) Pulse Ox O2 Delivery O2 Flow Rate FiO2 11/16/20 04:00 88 11/16/20 04:00 100.3 89 18 113/53 (73) 73 11/16/20 02:53 100.4 11/16/20 00:00 101.5 86 18 106/56 (73) 96 11/16/20 00:00 88 11/15/20 21:05 99.1 11/15/20 21:00 Room Air 11/15/20 20:00 90 11/15/20 20:00 102.0 92 16 132/67 (88) 94 11/15/20 16:00 99.0 80 18 121/70 (87) 98 11/15/20 16:00 88 11/15/20 12:00 99.7 87 18 126/75 (92) 96 11/15/20 12:00 77 Height (Feet): 5 Height (Inches): 11.00 Weight (Pounds): 138 Respiratory/Chest: lungs clear Cardiovascular: normal rate, regular rhythm, no gallop/murmur Abdomen: soft, non tender Extremities: no edema Microbiology Date/Time Source Procedure Growth Status 11/14/20 01:58 Urine,Clean Catch Urine Culture - Final NO GROWTH AFTER 48 HOURS Complete Laboratory Tests Test 11/16/20 02:54 White Blood Count 5.2 K/UL (4.8-10.8) Red Blood Count 4.89 M/UL (4.70-6.10) Hemoglobin 10.7 G/DL (14.2-18.0) L Hematocrit 35.2 % (42.0-52.0) L Mean Corpuscular Volume 72 FL (80-99) L Mean Corpuscular Hemoglobin 21.8 PG (27.0-31.0) L Mean Corpuscular Hemoglobin Concent 30.3 G/DL (32.0-36.0) L Red Cell Distribution Width 13.8 % (11.6-14.8) Platelet Count 183 K/UL (150-450) Mean Platelet Volume 8.4 FL (6.5-10.1) Neutrophils (%) (Auto) 75.6 % (45.0-75.0) H Lymphocytes (%) (Auto) 16.2 % (20.0-45.0) L Monocytes (%) (Auto) 7.7 % (1.0-10.0) Eosinophils (%) (Auto) 0.3 % (0.0-3.0) Basophils (%) (Auto) 0.3 % (0.0-2.0) Sodium Level 145 MMOL/L (136-145) Potassium Level 3.4 MMOL/L (3.5-5.1) L Chloride Level 111 MMOL/L (98-107) H Carbon Dioxide Level 23 MMOL/L (21-32) Anion Gap 11 mmol/L (5-15) Blood Urea Nitrogen 45 mg/dL (7-18) H Creatinine 3.3 MG/DL (0.55-1.30) H Estimat Glomerular Filtration Rate 23.4 mL/min (>60) Glucose Level 85 MG/DL (74-106) Uric Acid 8.5 MG/DL (2.6-7.2) H Calcium Level 7.8 MG/DL (8.5-10.1) L Phosphorus Level 3.4 MG/DL (2.5-4.9) Magnesium Level 1.8 MG/DL (1.8-2.4) Total Bilirubin 0.3 MG/DL (0.2-1.0) Aspartate Amino Transf (AST/SGOT) 48 U/L (15-37) H Alanine Aminotransferase (ALT/SGPT) 24 U/L (12-78) Alkaline Phosphatase 51 U/L (46-116) Total Creatine Kinase 677 U/L (26-308) H C-Reactive Protein, Quantitative 16.8 mg/dL (0.00-0.90) H Pro-B-Type Natriuretic Peptide 383 pg/mL (0-125) H Total Protein 6.4 G/DL (6.4-8.2) Albumin 2.1 G/DL (3.4-5.0) L Globulin 4.3 g/dL Albumin/Globulin Ratio 0.5 (1.0-2.7) L Triglycerides Level 93 MG/DL (30-150) Cholesterol Level 102 MG/DL (< 200) LDL Cholesterol 47 mg/dL (<100) HDL Cholesterol 40 MG/DL (40-60) Cholesterol/HDL Ratio 2.6 (3.3-4.4) L Current Medications Medications (Trade) Dose Ordered Sig/Aminah Route PRN Reason Start Time Stop Time Status Last Admin Dose Admin Acetaminophen (Tylenol) 500 mg Q4H PRN ORAL Temp >100.5 11/14/20 07:30 12/14/20 07:29 11/16/20 02:23 Barium Sulfate (Varibar Honey) 250 ml NOW PRN MC RAD 11/14/20 08:00 11/17/20 07:57 Barium Sulfate (Varibar [place]) 240 ml NOW PRN MC RAD 11/14/20 08:00 11/17/20 07:57 Barium Sulfate (Varibar Pudding) 230 ml NOW PRN RAD 11/14/20 08:00 11/17/20 07:57 Barium Sulfate (Varibar Thin Liquid powder) 148 gm NOW PRN RAD 11/14/20 08:00 11/17/20 07:57 Dextrose (Dextrose 50%) 25 ml Q30M PRN IV Hypoglycemia 11/14/20 12:00 02/12/21 11:59 Dextrose (Dextrose 50%) 50 ml Q30M PRN IV Hypoglycemia 11/14/20 12:00 02/12/21 11:59 Docusate Sodium (Colace) 100 mg THREE TIMES A DAY ORAL 11/14/20 13:00 12/14/20 12:59 11/16/20 09:16 Insulin Aspart (NovoLOG) BEFORE MEALS AND HS SUBQ 11/14/20 16:30 02/12/21 16:29 11/16/20 05:25 Insulin Aspart (NovoLOG) 4 units NOVOTIAC SUBQ 11/14/20 16:50 02/12/21 16:49 11/16/20 05:26 Insulin Detemir (Levemir) 12 units BEDTIME SUBQ 11/14/20 21:00 02/12/21 20:59 11/15/20 20:36 Pantoprazole (Protonix) 40 mg EVERY 12 HOURS ORAL 11/14/20 11:00 12/14/20 10:59 11/16/20 09:16 Piperacillin Sod/ Tazobactam Sod 3.375 gm/Sodium Chloride 110 ml @ 27.5 mls/hr EVERY 12 HOURS IVPB 11/16/20 09:00 11/21/20 08:59 11/16/20 09:24 Sodium Chloride 1,000 ml @ 75 mls/hr [id number] IV 11/14/20 13:45 12/14/20 13:44 11/16/20 05:24 Tamsulosin HCl (Flomax) 0.4 mg BID ORAL 11/14/20 11:00 12/14/20 10:59 11/16/20 09:16 Adrián Ferrer MD Nov 16, 2020 11:22
--- NOTE | 2020-11-16 11:42 | NUR ---
RD ASSESSMENT & RECOMMENDATIONS SEE CARE ACTIVITY FOR COMPLETE ASSESSMENT DAILY ESTIMATED NEEDS: Needs based on JUDD, DM/ 52kg abw 25-30 kcals/kg 3966-7487 total kcals 0.8-1.0 g protein/kg 42-52 g total protein 25-30 mL/kg 4293-2719 total fluid mLs NUTRITION DIAGNOSIS: Altered nutrition related lab values R/T diabetes, JUDD as evidenced by A1C 8.2, elev BG and POC glu (154 202 157 103 140) improved w/ insulin regimen, elev creat (5.2-> 3.3), elev K upon adm -> now low 3.4. CURRENT DIET:RENAL, CCHO MED/ texture per PRESS HAND PO DIET RECOMMENDATIONS: LOW NA + CCHO LOW/ texture per PRESS HAND ADDITIONAL RECOMMENDATIONS: * Calibrated bedscale wt * Monitor BGs closely for hypoglycemia w/ poro PO and increased insulin * Add Glucerna BID w/ poor PO (220kcal/9g prot each) * Monitor renal fxn and lytes: improving renal fxn, hyperkalemia resolved -> rec liberalizing diet from renal to low Na for improved PO acceptance
[2020-11-16 12:00] VITALS: BP 150/81
--- NOTE | 2020-11-16 12:10 | General Progress Note ---
Subjective Allergies: Coded Allergies: No Known Allergies (Unverified , 11/14/20) Subjective events noted interval notes reviewed glucose improved and on lower side Item Value Date Time Bedside Blood Glucose 69 mg/dl L 11/16/20 1130 Bedside Blood Glucose 154 mg/dl H 11/16/20 0630 Bedside Blood Glucose 202 mg/dl H 11/15/20 2131 Bedside Blood Glucose 157 mg/dl H 11/15/20 1734 Bedside Blood Glucose 103 mg/dl 11/15/20 1130 Objective Last 24 Hour Vital Signs Date Time Temp Pulse Resp B/P (MAP) Pulse Ox O2 Delivery O2 Flow Rate FiO2 11/16/20 09:00 Room Air 11/16/20 08:00 98.3 87 21 161/90 (113) 73 11/16/20 08:00 69 11/16/20 04:00 88 11/16/20 04:00 100.3 89 18 113/53 (73) 73 11/16/20 02:53 100.4 11/16/20 00:00 101.5 86 18 106/56 (73) 96 11/16/20 00:00 88 11/15/20 21:05 99.1 11/15/20 21:00 Room Air 11/15/20 20:00 90 11/15/20 20:00 102.0 92 16 132/67 (88) 94 11/15/20 16:00 99.0 80 18 121/70 (87) 98 11/15/20 16:00 88 Intake and Output 11/15/20 11/16/20 19:00 07:00 Intake Total 1025 ml 240 ml Output Total 800 ml 800 ml Balance 225 ml -560 ml Intake Oral 200 ml 240 ml IV Total 825 ml Output Urine Total 800 ml 800 ml Laboratory Tests 11/16/20 02:54: White Blood Count 5.2, Red Blood Count 4.89, Hemoglobin 10.7L, Hematocrit 35.2L, Mean Corpuscular Volume 72L, Mean Corpuscular Hemoglobin 21.8L, Mean Corpuscular Hemoglobin Concent 30.3L, Red Cell Distribution Width 13.8, Platelet Count 183, Mean Platelet Volume 8.4, Neutrophils (%) (Auto) 75.6H, Lymphocytes (%) (Auto) 16.2L, Monocytes (%) (Auto) 7.7, Eosinophils (%) (Auto) 0.3, Basophils (%) (Auto) 0.3, Sodium Level 145, Potassium Level 3.4L, Chloride Level 111H, Carbon Dioxide Level 23, Anion Gap 11, Blood Urea Nitrogen 45H, Creatinine 3.3H, Estimat Glomerular Filtration Rate 23.4, Glucose Level 85, Uric Acid 8.5H, Calcium Level 7.8L, Phosphorus Level 3.4, Magnesium Level 1.8, Total Bilirubin 0.3, Aspartate Amino Transf (AST/SGOT) 48H, Alanine Aminotransferase (ALT/SGPT) 24, Alkaline Phosphatase 51, Total Creatine Kinase 677H, C-Reactive Protein, Quantitative 16.8H, Pro-B-Type Natriuretic Peptide 383H, Total Protein 6.4, Albumin 2.1L, Globulin 4.3, Albumin/Globulin Ratio 0.5L, Triglycerides Level 93, Cholesterol Level 102, LDL Cholesterol 47, HDL Cholesterol 40, Cholesterol/HDL Ratio 2.6L Height (Feet): 5 Height (Inches): 11.00 Weight (Pounds): 138 Objective Current Medications Medications (Trade) Dose Ordered Sig/Aminah Route PRN Reason Start Time Stop Time Status Last Admin Dose Admin Acetaminophen (Tylenol) 500 mg Q4H PRN ORAL Temp >100.5 11/14/20 07:30 12/14/20 07:29 11/16/20 02:23 Barium Sulfate (Varibar Honey) 250 ml NOW PRN MC RAD 11/14/20 08:00 11/17/20 07:57 Barium Sulfate (Varibar [place]) 240 ml NOW PRN MC RAD 11/14/20 08:00 11/17/20 07:57 Barium Sulfate (Varibar Pudding) 230 ml NOW PRN MC RAD 11/14/20 08:00 11/17/20 07:57 Barium Sulfate (Varibar Thin Liquid powder) 148 gm NOW PRN MC RAD 11/14/20 08:00 11/17/20 07:57 Dextrose (Dextrose 50%) 25 ml Q30M PRN IV Hypoglycemia 11/14/20 12:00 02/12/21 11:59 Dextrose (Dextrose 50%) 50 ml Q30M PRN IV Hypoglycemia 11/14/20 12:00 02/12/21 11:59 Docusate Sodium (Colace) 100 mg THREE TIMES A DAY ORAL 11/14/20 13:00 12/14/20 12:59 11/16/20 09:16 Insulin Aspart (NovoLOG) BEFORE MEALS AND HS SUBQ 11/14/20 16:30 02/12/21 16:29 11/16/20 05:25 Insulin Aspart (NovoLOG) 4 units NOVOTIAC SUBQ 11/14/20 16:50 02/12/21 16:49 11/16/20 05:26 Insulin Detemir (Levemir) 12 units BEDTIME SUBQ 11/14/20 21:00 02/12/21 20:59 11/15/20 20:36 Pantoprazole (Protonix) 40 mg EVERY 12 HOURS ORAL 11/14/20 11:00 12/14/20 10:59 11/16/20 09:16 Piperacillin Sod/ Tazobactam Sod 3.375 gm/Sodium Chloride 110 ml @ 27.5 mls/hr EVERY 12 HOURS IVPB 11/16/20 09:00 11/21/20 08:59 11/16/20 09:24 Sodium Chloride 1,000 ml @ 75 mls/hr [id number] IV 11/14/20 13:45 12/14/20 13:44 11/16/20 05:24 Tamsulosin HCl (Flomax) 0.4 mg BID ORAL 11/14/20 11:00 12/14/20 10:59 11/16/20 09:16 Assessment/Plan Problem List: (1) Diabetes mellitus out of control ICD Codes: E11.65 - Type 2 diabetes mellitus with hyperglycemia SNOMED: 60682773, 395128782 (2) Hyperkalemia ICD Codes: E87.5 - Hyperkalemia SNOMED: 08033868 (3) Acute kidney failure ICD Codes: N17.9 - Acute kidney failure, unspecified SNOMED: 38863265 (4) Person under investigation for COVID-19 ICD Codes: Z20.822 - Contact with and (suspected) exposure to COVID-19 SNOMED: 811224936 (5) UTI (urinary tract infection) ICD Codes: N39.0 - Urinary tract infection, site not specified SNOMED: 25209242 (6) Pneumonia ICD Codes: J18.9 - Pneumonia, unspecified organism SNOMED: 562321034 Status: progressing Assessment/Plan: continue Levemir 12 units daily continue Novolog 4 units ac tid continue Novolog sliding scale ac hs - reduce intensity Gilbert Irving MD Nov 16, 2020 12:10
--- NOTE | 2020-11-16 12:45 | Surgery Progress Note ---
Surgery Progress Note Subjective Symptoms: improved, tolerating diet, passing flatus, BM, pain decreased Additional Comments renal function improved Objective Last 24 Hour Vital Signs Date Time Temp Pulse Resp B/P (MAP) Pulse Ox O2 Delivery O2 Flow Rate FiO2 11/16/20 09:00 Room Air 11/16/20 08:00 98.3 87 21 161/90 (113) 73 11/16/20 08:00 69 11/16/20 04:00 88 11/16/20 04:00 100.3 89 18 113/53 (73) 73 11/16/20 02:53 100.4 11/16/20 00:00 101.5 86 18 106/56 (73) 96 11/16/20 00:00 88 11/15/20 21:05 99.1 11/15/20 21:00 Room Air 11/15/20 20:00 90 11/15/20 20:00 102.0 92 16 132/67 (88) 94 11/15/20 16:00 99.0 80 18 121/70 (87) 98 11/15/20 16:00 88 I&O Intake and Output 11/15/20 11/16/20 19:00 07:00 Intake Total 1025 ml 240 ml Output Total 800 ml 800 ml Balance 225 ml -560 ml Intake Oral 200 ml 240 ml IV Total 825 ml Output Urine Total 800 ml 800 ml Dressing: other Wound: other Cardiovascular: RSR Respiratory: decreased breath sounds Abdomen: soft, non-tender, present bowel sounds, non-distended Extremities: no tenderness, no cyanosis Laboratory Tests Test 11/16/20 02:54 White Blood Count 5.2 K/UL (4.8-10.8) Red Blood Count 4.89 M/UL (4.70-6.10) Hemoglobin 10.7 G/DL (14.2-18.0) L Hematocrit 35.2 % (42.0-52.0) L Mean Corpuscular Volume 72 FL (80-99) L Mean Corpuscular Hemoglobin 21.8 PG (27.0-31.0) L Mean Corpuscular Hemoglobin Concent 30.3 G/DL (32.0-36.0) L Red Cell Distribution Width 13.8 % (11.6-14.8) Platelet Count 183 K/UL (150-450) Mean Platelet Volume 8.4 FL (6.5-10.1) Neutrophils (%) (Auto) 75.6 % (45.0-75.0) H Lymphocytes (%) (Auto) 16.2 % (20.0-45.0) L Monocytes (%) (Auto) 7.7 % (1.0-10.0) Eosinophils (%) (Auto) 0.3 % (0.0-3.0) Basophils (%) (Auto) 0.3 % (0.0-2.0) Sodium Level 145 MMOL/L (136-145) Potassium Level 3.4 MMOL/L (3.5-5.1) L Chloride Level 111 MMOL/L (98-107) H Carbon Dioxide Level 23 MMOL/L (21-32) Anion Gap 11 mmol/L (5-15) Blood Urea Nitrogen 45 mg/dL (7-18) H Creatinine 3.3 MG/DL (0.55-1.30) H Estimat Glomerular Filtration Rate 23.4 mL/min (>60) Glucose Level 85 MG/DL (74-106) Uric Acid 8.5 MG/DL (2.6-7.2) H Calcium Level 7.8 MG/DL (8.5-10.1) L Phosphorus Level 3.4 MG/DL (2.5-4.9) Magnesium Level 1.8 MG/DL (1.8-2.4) Total Bilirubin 0.3 MG/DL (0.2-1.0) Aspartate Amino Transf (AST/SGOT) 48 U/L (15-37) H Alanine Aminotransferase (ALT/SGPT) 24 U/L (12-78) Alkaline Phosphatase 51 U/L (46-116) Total Creatine Kinase 677 U/L (26-308) H C-Reactive Protein, Quantitative 16.8 mg/dL (0.00-0.90) H Pro-B-Type Natriuretic Peptide 383 pg/mL (0-125) H Total Protein 6.4 G/DL (6.4-8.2) Albumin 2.1 G/DL (3.4-5.0) L Globulin 4.3 g/dL Albumin/Globulin Ratio 0.5 (1.0-2.7) L Triglycerides Level 93 MG/DL (30-150) Cholesterol Level 102 MG/DL (< 200) LDL Cholesterol 47 mg/dL (<100) HDL Cholesterol 40 MG/DL (40-60) Cholesterol/HDL Ratio 2.6 (3.3-4.4) L Plan Problems: (1) Hyperkalemia (2) Acute kidney failure Assessment & Plan: 60-year-old male acute renal failure hyperkalemia renal insufficiency. Patient evaluated is a candidate for temporary hemodialysis access for renal recovery. Currently IV fluids medications and under work-up and assessment for medical management prior to dialysis. If improves will hold on temporary hemodialysis access if worsening will place temporary dialysis access initiate dialysis and if necessary in future considerations of more permanent access. Thank you allowing me to participate in patient's care will follow with recommendations continue trending labs fluids and current medical management labs improved hold on HD line cont fluids (3) Person under investigation for COVID-19 (4) UTI (urinary tract infection) (5) Pneumonia (6) Diabetes mellitus out of control Favian Temple Nov 16, 2020 12:45
--- NOTE | 2020-11-16 12:47 | Nephrology Progress Note ---
Assessment/Plan Problem List: (1) Acute kidney failure (2) Hyperkalemia (3) Diabetes mellitus out of control (4) Pneumonia (5) UTI (urinary tract infection) Assessment Acute on chronic renal failure Hyperkalemia UTI Pneumonia Diabetes mellitus Plan November 16: Labs reviewed. Low potassium addressed. Serum creatinine 3.3 unchanged. Continue per current treatment plan. November 15: Labs reviewed. Renal parameters stable. Blood sugar better controlled. Medication list reviewed. Continue per current management. Hyperkalemia resolved. Continue to monitor renal parameters. Previously: Renal diet Kidney ultrasound Kayexalate Flomax Blood pressure and blood sugar in check Subjective ROS Limited/Unobtainable: No Constitutional: Reports: malaise, weakness Objective Objective Last 24 Hour Vital Signs Date Time Temp Pulse Resp B/P (MAP) Pulse Ox O2 Delivery O2 Flow Rate FiO2 11/16/20 09:00 Room Air 11/16/20 08:00 98.3 87 21 161/90 (113) 73 11/16/20 08:00 69 11/16/20 04:00 88 11/16/20 04:00 100.3 89 18 113/53 (73) 73 11/16/20 02:53 100.4 11/16/20 00:00 101.5 86 18 106/56 (73) 96 11/16/20 00:00 88 11/15/20 21:05 99.1 11/15/20 21:00 Room Air 11/15/20 20:00 90 11/15/20 20:00 102.0 92 16 132/67 (88) 94 11/15/20 16:00 99.0 80 18 121/70 (87) 98 11/15/20 16:00 88 Intake and Output 11/15/20 11/16/20 19:00 07:00 Intake Total 1025 ml 240 ml Output Total 800 ml 800 ml Balance 225 ml -560 ml Intake Oral 200 ml 240 ml IV Total 825 ml Output Urine Total 800 ml 800 ml Current Medications Medications (Trade) Dose Ordered Sig/Aminah Route PRN Reason Start Time Stop Time Status Last Admin Dose Admin Acetaminophen (Tylenol) 500 mg Q4H PRN ORAL Temp >100.5 11/14/20 07:30 12/14/20 07:29 11/16/20 02:23 Barium Sulfate (Varibar Honey) 250 ml NOW PRN MC RAD 11/14/20 08:00 11/17/20 07:57 Barium Sulfate (Varibar [place]) 240 ml NOW PRN MC RAD 11/14/20 08:00 11/17/20 07:57 Barium Sulfate (Varibar Pudding) 230 ml NOW PRN MC RAD 11/14/20 08:00 11/17/20 07:57 Barium Sulfate (Varibar Thin Liquid powder) 148 gm NOW PRN MC RAD 11/14/20 08:00 11/17/20 07:57 Dextrose (Dextrose 50%) 25 ml Q30M PRN IV Hypoglycemia 11/14/20 12:00 02/12/21 11:59 Dextrose (Dextrose 50%) 50 ml Q30M PRN IV Hypoglycemia 11/14/20 12:00 02/12/21 11:59 Docusate Sodium (Colace) 100 mg THREE TIMES A DAY ORAL 11/14/20 13:00 12/14/20 12:59 11/16/20 12:16 Insulin Aspart (NovoLOG) BEFORE MEALS AND HS SUBQ 11/16/20 16:30 02/12/21 16:29 Insulin Aspart (NovoLOG) 4 units NOVOTIAC SUBQ 11/14/20 16:50 02/12/21 16:49 11/16/20 05:26 Insulin Detemir (Levemir) 12 units BEDTIME SUBQ 11/14/20 21:00 02/12/21 20:59 11/15/20 20:36 Pantoprazole (Protonix) 40 mg EVERY 12 HOURS ORAL 11/14/20 11:00 12/14/20 10:59 11/16/20 09:16 Piperacillin Sod/ Tazobactam Sod 3.375 gm/Sodium Chloride 110 ml @ 27.5 mls/hr EVERY 12 HOURS IVPB 11/16/20 09:00 11/21/20 08:59 11/16/20 09:24 Sodium Chloride 1,000 ml @ 75 mls/hr [id number] IV 11/14/20 13:45 12/14/20 13:44 11/16/20 05:24 Tamsulosin HCl (Flomax) 0.4 mg BID ORAL 11/14/20 11:00 12/14/20 10:59 11/16/20 09:16 Laboratory Tests 11/16/20 02:54: White Blood Count 5.2, Red Blood Count 4.89, Hemoglobin 10.7L, Hematocrit 35.2L, Mean Corpuscular Volume 72L, Mean Corpuscular Hemoglobin 21.8L, Mean Corpuscular Hemoglobin Concent 30.3L, Red Cell Distribution Width 13.8, Platelet Count 183, Mean Platelet Volume 8.4, Neutrophils (%) (Auto) 75.6H, Lymphocytes (%) (Auto) 16.2L, Monocytes (%) (Auto) 7.7, Eosinophils (%) (Auto) 0.3, Basophils (%) (Auto) 0.3, Sodium Level 145, Potassium Level 3.4L, Chloride Level 111H, Carbon Dioxide Level 23, Anion Gap 11, Blood Urea Nitrogen 45H, Creatinine 3.3H, Estimat Glomerular Filtration Rate 23.4, Glucose Level 85, Uric Acid 8.5H, Calcium Level 7.8L, Phosphorus Level 3.4, Magnesium Level 1.8, Total Bilirubin 0.3, Aspartate Amino Transf (AST/SGOT) 48H, Alanine Aminotransferase (ALT/SGPT) 24, Alkaline Phosphatase 51, Total Creatine Kinase 677H, C-Reactive Protein, Quantitative 16.8H, Pro-B-Type Natriuretic Peptide 383H, Total Protein 6.4, Albumin 2.1L, Globulin 4.3, Albumin/Globulin Ratio 0.5L, Triglycerides Level 93, Cholesterol Level 102, LDL Cholesterol 47, HDL Cholesterol 40, Cholesterol/HDL Ratio 2.6L Height (Feet): 5 Height (Inches): 11.00 Weight (Pounds): 138 Cardiovascular: normal rate Respiratory/Chest: decreased breath sounds Abdomen: distended Meng Cha MD Nov 16, 2020 12:47
--- NOTE | 2020-11-16 12:56 | General Progress Note ---
Subjective ROS Limited/Unobtainable: Yes Allergies: Coded Allergies: No Known Allergies (Unverified , 11/14/20) Objective Last 24 Hour Vital Signs Date Time Temp Pulse Resp B/P (MAP) Pulse Ox O2 Delivery O2 Flow Rate FiO2 11/16/20 09:00 Room Air 11/16/20 08:00 98.3 87 21 161/90 (113) 73 11/16/20 08:00 69 11/16/20 04:00 88 11/16/20 04:00 100.3 89 18 113/53 (73) 73 11/16/20 02:53 100.4 11/16/20 00:00 101.5 86 18 106/56 (73) 96 11/16/20 00:00 88 11/15/20 21:05 99.1 11/15/20 21:00 Room Air 11/15/20 20:00 90 11/15/20 20:00 102.0 92 16 132/67 (88) 94 11/15/20 16:00 99.0 80 18 121/70 (87) 98 11/15/20 16:00 88 Intake and Output 11/15/20 11/16/20 19:00 07:00 Intake Total 1025 ml 240 ml Output Total 800 ml 800 ml Balance 225 ml -560 ml Intake Oral 200 ml 240 ml IV Total 825 ml Output Urine Total 800 ml 800 ml Laboratory Tests 11/16/20 02:54: White Blood Count 5.2, Red Blood Count 4.89, Hemoglobin 10.7L, Hematocrit 35.2L, Mean Corpuscular Volume 72L, Mean Corpuscular Hemoglobin 21.8L, Mean Corpuscular Hemoglobin Concent 30.3L, Red Cell Distribution Width 13.8, Platelet Count 183, Mean Platelet Volume 8.4, Neutrophils (%) (Auto) 75.6H, Lymphocytes (%) (Auto) 16.2L, Monocytes (%) (Auto) 7.7, Eosinophils (%) (Auto) 0.3, Basophils (%) (Auto) 0.3, Sodium Level 145, Potassium Level 3.4L, Chloride Level 111H, Carbon Dioxide Level 23, Anion Gap 11, Blood Urea Nitrogen 45H, Creatinine 3.3H, Estimat Glomerular Filtration Rate 23.4, Glucose Level 85, Uric Acid 8.5H, Calcium Level 7.8L, Phosphorus Level 3.4, Magnesium Level 1.8, Total Bilirubin 0.3, Aspartate Amino Transf (AST/SGOT) 48H, Alanine Aminotransferase (ALT/SGPT) 24, Alkaline Phosphatase 51, Total Creatine Kinase 677H, C-Reactive Protein, Quantitative 16.8H, Pro-B-Type Natriuretic Peptide 383H, Total Protein 6.4, Albumin 2.1L, Globulin 4.3, Albumin/Globulin Ratio 0.5L, Triglycerides Level 93, Cholesterol Level 102, LDL Cholesterol 47, HDL Cholesterol 40, Cholesterol/HDL Ratio 2.6L Height (Feet): 5 Height (Inches): 11.00 Weight (Pounds): 138 Assessment/Plan Problem List: (1) Hyperkalemia ICD Codes: E87.5 - Hyperkalemia SNOMED: 99011120 (2) Acute kidney failure ICD Codes: N17.9 - Acute kidney failure, unspecified SNOMED: 42259503 (3) UTI (urinary tract infection) ICD Codes: N39.0 - Urinary tract infection, site not specified SNOMED: 42594229 (4) Pneumonia ICD Codes: J18.9 - Pneumonia, unspecified organism SNOMED: 103080357 (5) Diabetes mellitus out of control ICD Codes: E11.65 - Type 2 diabetes mellitus with hyperglycemia SNOMED: 11084064, 723540185 Status: progressing Assessment/Plan: pna uti low k arf on top of cri htn Hira Paul MD Nov 16, 2020 12:56
[2020-11-16] MEDS ORDERED: NOVOLOG100 UNITS1 SUBQ (13:47)
[2020-11-16] MEDS ORDERED: TRUSOPT10 ML BOTH EYES (13:47)
[2020-11-16] MEDS ORDERED: FUROSEMIDE20 M1 ORAL (13:47)
[2020-11-16] MEDS ORDERED: AMLODIPINE BESYL5 MG ORAL (13:47)
[2020-11-16] MEDS ORDERED: NOVOLIN N100 UNIT/3 SQ (13:50)
--- NOTE | 2020-11-16 14:15 | Diagnostic Imaging Report ---
Indication: Shortness of breath Technique: One view of the chest Comparison: 11/14/2020 Findings: Infiltrates are seen in the left lung. Questionable peripheral streaky infiltrates also demonstrated in the right lung. The heart is enlarged. The left costophrenic angle is obscured, pleural fluid possible. Impression: Bilateral left greater than right infiltrates. Possible small left pleural effusion Mild cardiomegaly
[2020-11-16 16:00] VITALS: BP 153/91
--- NOTE | 2020-11-16 17:03 | NUR ---
Speech Pathology Note (Bedside Dysphagia Evaluation) Brief Note: Mr. Haney is a 60 year old male admitted [facility] on 11/14/2020 for JUDD BUN/Creatine 74/5.2, Hyperglycemia 255, and hyperkalemia 5.8 c.w elevated inflammatory marker and low grade fever. His current BUN/Creatine is 45/3.3, last 24 hours max fever is 100.4. He is tolerating on Po diet without dysphagia or s.s of aspiration. Findings: Mr. Haney is alert. He is oriented to self, Hospital and year. He follows commands. His speech is clear, voice is intact. Given him 150cc of water, he tolerated well without s.s of aspiration. Interpretation: 1. Functional swallow Plan: 1. Mechanical soft chopped diet Maddy Erickson
--- NOTE | 2020-11-16 19:41 | NUR ---
NURSE HAND-OFF REPORT: Important Events on Shift: Tmax 99.5F, no other adverse events noted; endorsed contact information for next of kin Patient Status: Stable Diet: Pureed Renal Pending Orders: N Pending Results/Labs: N Pending MD notification: N Latest Vital Signs: Temperature 99.5 , Pulse 80 , B/P 153 /91 , Respiratory Rate 21 , O2 SAT 96 , Room Air, O2 Flow Rate . Vital Sign Comment: EKG Rhythm: Sinus Rhythm Rhythm change?: N MD Notified?: - MD Response: Latest Layton Fall Score: 60 Fall Risk: High Risk Safety Measures: Call light Within Reach, Bed Alarm Zone 1, Side Rails Side Rails x2, Bed position Low and Locked. Fall Precautions: Patient Fall Education Report given to Raudel ROSE.
--- NOTE | 2020-11-16 19:47 | NUR ---
NURSE NOTES: The patient is alert and oriented x3, cooperative with his care and doesn't seem to be in any active distress at this time.given. PIV on right AC that is patent and infusing 1/2 NS @ 75ml/hr. Bravo cath secured and draining. Bed low and locked, siderails up x2, call light placed within reach and instructed to call nurse for assistance. Will continue to monitor.
[2020-11-16 20:00] VITALS: BP 135/87
[2020-11-16] MEDS: Levemir Flexpen SUBQ SCH (21:59)
[2020-11-17] VITALS: BP 131/87
[2020-11-17 04:00] VITALS: BP 125/85
[2020-11-17] MEDS: NovoLOG Insulin Flexpen SUBQ SCH ×7 (06:30→21:00)
--- NOTE | 2020-11-17 07:18 | NUR ---
NURSE HAND-OFF REPORT: Important Events on Shift:Alert and awake Patient Status: Diet: Pending Orders: Pending Results/Labs: Pending MD notification: Latest Vital Signs: Temperature 99.4 , Pulse 93 , B/P 125 /85 , Respiratory Rate 17 , O2 SAT 93 , Room Air, O2 Flow Rate . Vital Sign Comment: EKG Rhythm: Sinus Rhythm Rhythm change?: N MD Notified?: - MD Response: Latest Layton Fall Score: 60 Fall Risk: High Risk Safety Measures: Call light Within Reach, Bed Alarm Zone 1, Side Rails Side Rails x2, Bed position Low and Locked. Fall Precautions: Patient Fall Education Report given to .
[2020-11-17 07:25] LABS: BASOPHILS % (AUTO) 0.5 % (0.0-2.0); EOSINOPHILS % (AUTO) 0.7 % (0.0-3.0); HEMATOCRIT 33.3 % (42.0-52.0); HEMOGLOBIN 10.2 G/DL (14.2-18.0); LYMPHOCYTES % (AUTO) 19.2 % (20.0-45.0); MEAN CORPUSCULAR VOLUME 72 FL (80-99); MONOCYTES % (AUTO) 6.5 % (1.0-10.0); NEUTROPHILS % (AUTO) 73.1 % (45.0-75.0); PLATELET COUNT 193 K/UL (150-450); RED BLOOD COUNT 4.65 M/UL (4.70-6.10); RED CELL DISTRIBUTION WIDTH 13.8 % (11.6-14.8); WHITE BLOOD COUNT 6.7 K/UL (4.8-10.8)
[2020-11-17 07:38] LABS: ALBUMIN 1.8 G/DL (3.4-5.0); ALBUMIN/GLOBULIN RATIO 0.4 (1.0-2.7); BILIRUBIN,TOTAL 0.4 MG/DL (0.2-1.0); CALCIUM 7.8 MG/DL (8.5-10.1); CREATININE 3.3 MG/DL (0.55-1.30); PHOSPHORUS 2.8 MG/DL (2.5-4.9); POTASSIUM 3.6 MMOL/L (3.5-5.1)
[2020-11-17 08:00] VITALS: BP 132/88
--- NOTE | 2020-11-17 08:15 | NUR ---
NURSE NOTES: AOx3, cooperative with his care and doesn't seem to be in any active distress at this time.given. right AC that is patent and infusing 1/2 NS @ 75ml/hr. Bravo cath secured and draining. Bed low and locked, siderails up x2, call light placed within reach and instructed to call nurse for assistance. Will continue to monitor.
[2020-11-17] MEDS: Docusate 100mg cap ORAL SCH ×3 (09:32→17:11)
[2020-11-17] MEDS: Tamsulosin 0.4mg cap ORAL SCH ×2 (09:32→17:11)
[2020-11-17] MEDS: Piperacillin/Tazobactam 3.375 GM in NS 110 ML IVPB SCH ×2 (09:32→21:46)
--- NOTE | 2020-11-17 10:59 | Infectious Diseases Prog Note ---
Assessment/Plan Assessment/Plan A 1. pneumonia covid19 pending 2. diabetes mellitus 3. Acute renal failure 4. Anemia P 1. continue Zosyn 2. will follow up cultures 3. continue isolation Subjective ROS Limited/Unobtainable: Yes Constitutional: Reports: no symptoms Allergies: Coded Allergies: No Known Allergies (Unverified , 11/14/20) Objective Last 24 Hour Vital Signs Date Time Temp Pulse Resp B/P (MAP) Pulse Ox O2 Delivery O2 Flow Rate FiO2 11/17/20 08:00 99.0 94 18 132/88 (103) 94 11/17/20 08:00 64 11/17/20 04:00 99.4 93 17 125/85 (98) 93 11/17/20 04:00 73 11/17/20 00:00 100.2 96 20 131/87 (102) 92 11/16/20 21:00 Room Air 11/16/20 20:00 88 11/16/20 20:00 99.8 98 18 135/87 (103) 96 11/16/20 16:00 99.5 59 21 153/91 (111) 96 11/16/20 16:00 80 11/16/20 12:00 73 11/16/20 12:00 96.8 67 22 150/81 (104) 96 Height (Feet): 5 Height (Inches): 11.00 Weight (Pounds): 138 General Appearance: no acute distress HEENT: mucous membranes moist Respiratory/Chest: lungs clear Cardiovascular: normal rate Abdomen: soft, non tender Genitourinary: other - Bravo catheter Extremities: no edema Neurologic/Psychiatric: alert, responsive Microbiology Date/Time Source Procedure Growth Status 11/16/20 02:54 Blood Blood Culture - Preliminary NO GROWTH AFTER 24 HOURS Resulted 11/16/20 02:40 Blood Blood Culture - Preliminary NO GROWTH AFTER 24 HOURS Resulted Laboratory Tests Test 11/17/20 06:37 White Blood Count 6.7 K/UL (4.8-10.8) Red Blood Count 4.65 M/UL (4.70-6.10) L Hemoglobin 10.2 G/DL (14.2-18.0) L Hematocrit 33.3 % (42.0-52.0) L Mean Corpuscular Volume 72 FL (80-99) L Mean Corpuscular Hemoglobin 22.0 PG (27.0-31.0) L Mean Corpuscular Hemoglobin Concent 30.7 G/DL (32.0-36.0) L Red Cell Distribution Width 13.8 % (11.6-14.8) Platelet Count 193 K/UL (150-450) Mean Platelet Volume 7.6 FL (6.5-10.1) Neutrophils (%) (Auto) 73.1 % (45.0-75.0) Lymphocytes (%) (Auto) 19.2 % (20.0-45.0) L Monocytes (%) (Auto) 6.5 % (1.0-10.0) Eosinophils (%) (Auto) 0.7 % (0.0-3.0) Basophils (%) (Auto) 0.5 % (0.0-2.0) Sodium Level 144 MMOL/L (136-145) Potassium Level 3.6 MMOL/L (3.5-5.1) Chloride Level 111 MMOL/L (98-107) H Carbon Dioxide Level 24 MMOL/L (21-32) Anion Gap 9 mmol/L (5-15) Blood Urea Nitrogen 39 mg/dL (7-18) H Creatinine 3.3 MG/DL (0.55-1.30) H Estimat Glomerular Filtration Rate 23.4 mL/min (>60) Glucose Level 134 MG/DL (74-106) H Uric Acid 6.6 MG/DL (2.6-7.2) Calcium Level 7.8 MG/DL (8.5-10.1) L Phosphorus Level 2.8 MG/DL (2.5-4.9) Magnesium Level 1.7 MG/DL (1.8-2.4) L Total Bilirubin 0.4 MG/DL (0.2-1.0) Aspartate Amino Transf (AST/SGOT) 50 U/L (15-37) H Alanine Aminotransferase (ALT/SGPT) 23 U/L (12-78) Alkaline Phosphatase 53 U/L (46-116) Total Protein 5.9 G/DL (6.4-8.2) L Albumin 1.8 G/DL (3.4-5.0) L Globulin 4.1 g/dL Albumin/Globulin Ratio 0.4 (1.0-2.7) L Current Medications Medications (Trade) Dose Ordered Sig/Aminah Route PRN Reason Start Time Stop Time Status Last Admin Dose Admin Acetaminophen (Tylenol) 500 mg Q4H PRN ORAL Temp >100.5 11/14/20 07:30 12/14/20 07:29 11/16/20 02:23 Dextrose (Dextrose 50%) 25 ml Q30M PRN IV Hypoglycemia 11/14/20 12:00 02/12/21 11:59 Dextrose (Dextrose 50%) 50 ml Q30M PRN IV Hypoglycemia 11/14/20 12:00 02/12/21 11:59 Docusate Sodium (Colace) 100 mg THREE TIMES A DAY ORAL 11/14/20 13:00 12/14/20 12:59 11/17/20 09:32 Insulin Aspart (NovoLOG) BEFORE MEALS AND HS SUBQ 11/16/20 16:30 02/12/21 16:29 11/16/20 21:00 Insulin Aspart (NovoLOG) 4 units NOVOTIAC SUBQ 11/14/20 16:50 02/12/21 16:49 11/17/20 06:37 Insulin Detemir (Levemir) 12 units BEDTIME SUBQ 11/14/20 21:00 02/12/21 20:59 11/16/20 21:59 Magnesium Sulfate 100 ml @ 100 mls/hr Q1H IVPB 11/17/20 10:30 11/17/20 12:29 Pantoprazole (Protonix) 40 mg EVERY 12 HOURS ORAL 11/14/20 11:00 12/14/20 10:59 11/17/20 09:32 Piperacillin Sod/ Tazobactam Sod 3.375 gm/Sodium Chloride 110 ml @ 27.5 mls/hr EVERY 12 HOURS IVPB 11/16/20 09:00 11/21/20 08:59 11/17/20 09:32 Sodium Chloride 1,000 ml @ 75 mls/hr [id number] IV 11/14/20 13:45 12/14/20 13:44 11/17/20 08:25 Tamsulosin HCl (Flomax) 0.4 mg BID ORAL 11/14/20 11:00 12/14/20 10:59 11/17/20 09:32 Gerber Vallejo MD Nov 17, 2020 10:59
--- NOTE | 2020-11-17 11:16 | NUR ---
SERVICE OBSERVER CHIEF NOTE SW met w/ pt for home safety evaluation and clarified his current living situation. PT reports he resides w/ his brother in law and his nephew named Manuel Frey. Pt reports he will be able to return to his brother in law's place upon DC. Pt does not recall the exact address/contact information. Pt shares he is ambulatory w/o DME and he does not have hx of fall within 6 months. Pt also reports that he is independent w/ ADLs and IADLs. UDS all negative. Pt appears to be weak. Recommending PT evaluation to evaluate pt's mobility.
[2020-11-17 12:00] VITALS: BP 128/85
--- NOTE | 2020-11-17 12:44 | Nephrology Progress Note ---
Assessment/Plan Problem List: (1) Acute kidney failure (2) Hyperkalemia (3) Diabetes mellitus out of control (4) Pneumonia (5) UTI (urinary tract infection) Assessment Acute on chronic renal failure Hyperkalemia UTI Pneumonia Diabetes mellitus Plan November 17: Labs reviewed. Abnormal electrolytes addressed. Serum creatinine 3.3 unchanged. Continue per current treatment plan. November 16: Labs reviewed. Low potassium addressed. Serum creatinine 3.3 unchanged. Continue per current treatment plan. November 15: Labs reviewed. Renal parameters stable. Blood sugar better controlled. Medication list reviewed. Continue per current management. Hyperkalemia resolved. Continue to monitor renal parameters. Previously: Renal diet Kidney ultrasound Kayexalate Flomax Blood pressure and blood sugar in check Subjective ROS Limited/Unobtainable: No Constitutional: Reports: malaise, weakness Objective Objective Last 24 Hour Vital Signs Date Time Temp Pulse Resp B/P (MAP) Pulse Ox O2 Delivery O2 Flow Rate FiO2 11/17/20 09:00 Room Air 11/17/20 08:00 99.0 94 18 132/88 (103) 94 11/17/20 08:00 64 11/17/20 04:00 99.4 93 17 125/85 (98) 93 11/17/20 04:00 73 11/17/20 00:00 100.2 96 20 131/87 (102) 92 11/16/20 21:00 Room Air 11/16/20 20:00 88 11/16/20 20:00 99.8 98 18 135/87 (103) 96 11/16/20 16:00 99.5 59 21 153/91 (111) 96 11/16/20 16:00 80 Intake and Output 11/16/20 11/17/20 19:00 07:00 Intake Total 195 ml 1185 ml Output Total 1000 ml Balance 195 ml 185 ml Intake Oral 120 ml 80 ml IV Total 75 ml 825 ml Other 280 ml Output Urine Total 1000 ml # Voids 1 Current Medications Medications (Trade) Dose Ordered Sig/Aminah Route PRN Reason Start Time Stop Time Status Last Admin Dose Admin Acetaminophen (Tylenol) 500 mg Q4H PRN ORAL Temp >100.5 11/14/20 07:30 12/14/20 07:29 11/16/20 02:23 Dextrose (Dextrose 50%) 25 ml Q30M PRN IV Hypoglycemia 11/14/20 12:00 02/12/21 11:59 Dextrose (Dextrose 50%) 50 ml Q30M PRN IV Hypoglycemia 11/14/20 12:00 02/12/21 11:59 Docusate Sodium (Colace) 100 mg THREE TIMES A DAY ORAL 11/14/20 13:00 12/14/20 12:59 11/17/20 12:42 Insulin Aspart (NovoLOG) BEFORE MEALS AND HS SUBQ 11/16/20 16:30 02/12/21 16:29 11/16/20 21:00 Insulin Aspart (NovoLOG) 4 units NOVOTIAC SUBQ 11/14/20 16:50 02/12/21 16:49 11/17/20 06:37 Insulin Detemir (Levemir) 12 units BEDTIME SUBQ 11/14/20 21:00 02/12/21 20:59 11/16/20 21:59 Pantoprazole (Protonix) 40 mg EVERY 12 HOURS ORAL 11/14/20 11:00 12/14/20 10:59 11/17/20 09:32 Piperacillin Sod/ Tazobactam Sod 3.375 gm/Sodium Chloride 110 ml @ 27.5 mls/hr EVERY 12 HOURS IVPB 11/16/20 09:00 11/21/20 08:59 11/17/20 09:32 Sodium Chloride 1,000 ml @ 75 mls/hr [id number] IV 11/14/20 13:45 12/14/20 13:44 11/17/20 08:25 Tamsulosin HCl (Flomax) 0.4 mg BID ORAL 11/14/20 11:00 12/14/20 10:59 11/17/20 09:32 Laboratory Tests 11/17/20 06:37: White Blood Count 6.7, Red Blood Count 4.65L, Hemoglobin 10.2L, Hematocrit 33.3L , Mean Corpuscular Volume 72L, Mean Corpuscular Hemoglobin 22.0L, Mean Corpuscular Hemoglobin Concent 30.7L, Red Cell Distribution Width 13.8, Platelet Count 193, Mean Platelet Volume 7.6, Neutrophils (%) (Auto) 73.1, Lymphocytes (%) (Auto) 19.2L, Monocytes (%) (Auto) 6.5, Eosinophils (%) (Auto) 0.7, Basophils (%) (Auto) 0.5, Sodium Level 144, Potassium Level 3.6, Chloride Level 111H, Carbon Dioxide Level 24, Anion Gap 9, Blood Urea Nitrogen 39H, Creatinine 3.3H, Estimat Glomerular Filtration Rate 23.4, Glucose Level 134H, Uric Acid 6.6, Calcium Level 7.8L, Phosphorus Level 2.8, Magnesium Level 1.7L, Total Bilirubin 0.4, Aspartate Amino Transf (AST/SGOT) 50H, Alanine Aminotransferase (ALT/SGPT) 23, Alkaline Phosphatase 53, Total Protein 5.9L, Albumin 1.8L, Globulin 4.1, Albumin/Globulin Ratio 0.4L Height (Feet): 5 Height (Inches): 11.00 Weight (Pounds): 138 General Appearance: no apparent distress Cardiovascular: tachycardia Respiratory/Chest: decreased breath sounds Abdomen: distended Meng Cha MD Nov 17, 2020 12:44
[2020-11-17 16:00] VITALS: BP 130/86
--- NOTE | 2020-11-17 16:54 | Surgery Progress Note ---
Surgery Progress Note Subjective Symptoms: improved, pain absent, tolerating diet, passing flatus, BM Objective Last 24 Hour Vital Signs Date Time Temp Pulse Resp B/P (MAP) Pulse Ox O2 Delivery O2 Flow Rate FiO2 11/17/20 12:00 98.8 71 20 128/85 (99) 94 11/17/20 12:00 76 11/17/20 09:00 Room Air 11/17/20 08:00 99.0 94 18 132/88 (103) 94 11/17/20 08:00 64 11/17/20 04:00 99.4 93 17 125/85 (98) 93 11/17/20 04:00 73 11/17/20 00:00 100.2 96 20 131/87 (102) 92 11/16/20 21:00 Room Air 11/16/20 20:00 88 11/16/20 20:00 99.8 98 18 135/87 (103) 96 I&O Intake and Output 11/16/20 11/17/20 19:00 07:00 Intake Total 195 ml 1185 ml Output Total 1000 ml Balance 195 ml 185 ml Intake Oral 120 ml 80 ml IV Total 75 ml 825 ml Other 280 ml Output Urine Total 1000 ml # Voids 1 Cardiovascular: RSR Respiratory: clear Abdomen: soft, flat, non-tender, present bowel sounds, non-distended Extremities: no edema, no tenderness, no cyanosis Laboratory Tests Test 11/17/20 06:37 White Blood Count 6.7 K/UL (4.8-10.8) Red Blood Count 4.65 M/UL (4.70-6.10) L Hemoglobin 10.2 G/DL (14.2-18.0) L Hematocrit 33.3 % (42.0-52.0) L Mean Corpuscular Volume 72 FL (80-99) L Mean Corpuscular Hemoglobin 22.0 PG (27.0-31.0) L Mean Corpuscular Hemoglobin Concent 30.7 G/DL (32.0-36.0) L Red Cell Distribution Width 13.8 % (11.6-14.8) Platelet Count 193 K/UL (150-450) Mean Platelet Volume 7.6 FL (6.5-10.1) Neutrophils (%) (Auto) 73.1 % (45.0-75.0) Lymphocytes (%) (Auto) 19.2 % (20.0-45.0) L Monocytes (%) (Auto) 6.5 % (1.0-10.0) Eosinophils (%) (Auto) 0.7 % (0.0-3.0) Basophils (%) (Auto) 0.5 % (0.0-2.0) Sodium Level 144 MMOL/L (136-145) Potassium Level 3.6 MMOL/L (3.5-5.1) Chloride Level 111 MMOL/L (98-107) H Carbon Dioxide Level 24 MMOL/L (21-32) Anion Gap 9 mmol/L (5-15) Blood Urea Nitrogen 39 mg/dL (7-18) H Creatinine 3.3 MG/DL (0.55-1.30) H Estimat Glomerular Filtration Rate 23.4 mL/min (>60) Glucose Level 134 MG/DL (74-106) H Uric Acid 6.6 MG/DL (2.6-7.2) Calcium Level 7.8 MG/DL (8.5-10.1) L Phosphorus Level 2.8 MG/DL (2.5-4.9) Magnesium Level 1.7 MG/DL (1.8-2.4) L Total Bilirubin 0.4 MG/DL (0.2-1.0) Aspartate Amino Transf (AST/SGOT) 50 U/L (15-37) H Alanine Aminotransferase (ALT/SGPT) 23 U/L (12-78) Alkaline Phosphatase 53 U/L (46-116) Total Protein 5.9 G/DL (6.4-8.2) L Albumin 1.8 G/DL (3.4-5.0) L Globulin 4.1 g/dL Albumin/Globulin Ratio 0.4 (1.0-2.7) L Plan Problems: (1) Hyperkalemia (2) Acute kidney failure Assessment & Plan: 60-year-old male acute renal failure hyperkalemia renal insufficiency. Patient evaluated is a candidate for temporary hemodialysis access for renal recovery. Currently IV fluids medications and under work-up and assessment for medical management prior to dialysis. If improves will hold on temporary hemodialysis access if worsening will place temporary dialysis acce ss initiate dialysis and if necessary in future considerations of more permanent access. Thank you allowing me to participate in patient's care will follow with recommendations continue trending labs fluids and current medical management labs improved hold on HD line cont fluids (3) Person under investigation for COVID-19 (4) UTI (urinary tract infection) (5) Pneumonia (6) Diabetes mellitus out of control Favian Temple Nov 17, 2020 16:54
--- NOTE | 2020-11-17 18:15 | NUR ---
NURSE NOTES: Pt is covid +, left message for Dr Bailey, awaiting for call back
--- NOTE | 2020-11-17 19:15 | NUR ---
NURSE NOTES: Received pt and report from MILTON Preston. Observed pt resting in bed with both eyes closed; arousable to voice. Pt is A/Ox3. color television console monitor is in placed; pt is currently NSR (90 bpm). IV site intact, asymptomatic, and patent; running 1/2 NS @75ml/hr. No SOB noted. Pt is on room air, RR at 17; O2 sat 97%. Bed is in the lowest position and locked. Call light and bedside table is within reach. No signs/symptoms of acute distress noted. Will continue plan of care.
[2020-11-17 20:00] VITALS: BP 124/53
--- NOTE | 2020-11-17 20:24 | General Progress Note ---
Subjective ROS Limited/Unobtainable: Yes Allergies: Coded Allergies: No Known Allergies (Unverified , 11/14/20) Objective Last 24 Hour Vital Signs Date Time Temp Pulse Resp B/P (MAP) Pulse Ox O2 Delivery O2 Flow Rate FiO2 11/17/20 16:00 99.3 74 18 130/86 (101) 95 11/17/20 16:00 75 11/17/20 12:00 98.8 71 20 128/85 (99) 94 11/17/20 12:00 76 11/17/20 09:00 Room Air 11/17/20 08:00 99.0 94 18 132/88 (103) 94 11/17/20 08:00 64 11/17/20 04:00 99.4 93 17 125/85 (98) 93 11/17/20 04:00 73 11/17/20 00:00 100.2 96 20 131/87 (102) 92 11/16/20 21:00 Room Air Intake and Output0 11/16/20 11/17/20 19:00 07:00 Intake Total 195 ml 1185 ml Output Total 1000 ml Balance 195 ml 185 ml Intake Oral 120 ml 80 ml IV Total 75 ml 825 ml Other 280 ml Output Urine Total 1000 ml # Voids 1 Laboratory Tests 11/17/20 06:37: White Blood Count 6.7, Red Blood Count 4.65L, Hemoglobin 10.2L, Hematocrit 33.3L , Mean Corpuscular Volume 72L, Mean Corpuscular Hemoglobin 22.0L, Mean Corpuscular Hemoglobin Concent 30.7L, Red Cell Distribution Width 13.8, Platelet Count 193, Mean Platelet Volume 7.6, Neutrophils (%) (Auto) 73.1, Lymphocytes (%) (Auto) 19.2L, Monocytes (%) (Auto) 6.5, Eosinophils (%) (Auto) 0.7, Basophils (%) (Auto) 0.5, Sodium Level 144, Potassium Level 3.6, Chloride Level 111H, Carbon Dioxide Level 24, Anion Gap 9, Blood Urea Nitrogen 39H, Creatinine 3.3H, Estimat Glomerular Filtration Rate 23.4, Glucose Level 134H, Uric Acid 6.6, Calcium Level 7.8L, Phosphorus Level 2.8, Magnesium Level 1.7L, Total Bilirubin 0.4, Aspartate Amino Transf (AST/SGOT) 50H, Alanine Aminotransferase (ALT/SGPT) 23, Alkaline Phosphatase 53, Total Protein 5.9L, Albumin 1.8L, Globulin 4.1, Albumin/Globulin Ratio 0.4L Height (Feet): 5 Height (Inches): 11.00 Weight (Pounds): 138 Assessment/Plan Problem List: (1) Hyperkalemia ICD Codes: E87.5 - Hyperkalemia SNOMED: 98224015 (2) Acute kidney failure ICD Codes: N17.9 - Acute kidney failure, unspecified SNOMED: 05229777 (3) UTI (urinary tract infection) ICD Codes: N39.0 - Urinary tract infection, site not specified SNOMED: 18933657 (4) Pneumonia ICD Codes: J18.9 - Pneumonia, unspecified organism SNOMED: 461212241 (5) Diabetes mellitus out of control ICD Codes: E11.65 - Type 2 diabetes mellitus with hyperglycemia SNOMED: 85516084, 557626645 Status: progressing Assessment/Plan: s/p fever anbx adjustment per id di weak azotemia lytes improving pna uti low k arf on top of cri htn Hira Paul MD Nov 17, 2020 20:24
[2020-11-17] MEDS: Levemir Flexpen SUBQ SCH (21:00)
[2020-11-18] VITALS: BP 110/76
[2020-11-18] MEDS: Acetaminophen 500mg (ES) tab ORAL PRN (01:11)
--- NOTE | 2020-11-18 02:12 | NUR ---
NURSE NOTES: Helped pt to bedside commode. Pt is weak and unsteady. Pt had a small BM. Stool is soft and brown. No SOB or acute distress noted. Will continue plan of care.
[2020-11-18 04:00] VITALS: BP 135/76
[2020-11-18] MEDS: NovoLOG Insulin Flexpen SUBQ SCH ×5 (05:53→20:58)
--- NOTE | 2020-11-18 05:58 | NUR ---
NURSE NOTES: Held bedtime Levemir subQ and standing order of Novolog 4 units subQ at 0630. Pt has low appetite and poor oral intake. AM BS was 178. Novolog 1 unit subQ administered per insulin sliding scale and juice given.
--- NOTE | 2020-11-18 06:07 | General Progress Note ---
Subjective Allergies: Coded Allergies: No Known Allergies (Unverified , 11/14/20) Subjective events noted interval notes reviewed glucose values low normal missed most of scheduled insulin in COVID isolation - tested positive Item Value Date Time Bedside Blood Glucose 178 mg/dl H 11/18/20 0553 Bedside Blood Glucose 111 mg/dl 11/17/20 2100 Bedside Blood Glucose 84 mg/dl 11/17/20 1650 Bedside Blood Glucose 74 mg/dl 11/17/20 1130 Bedside Blood Glucose 135 mg/dl H 11/17/20 0637 Objective Last 24 Hour Vital Signs Date Time Temp Pulse Resp B/P (MAP) Pulse Ox O2 Delivery O2 Flow Rate FiO2 11/18/20 04:00 99.1 84 17 135/76 (95) 96 11/18/20 04:00 85 11/18/20 01:45 99.3 11/18/20 01:41 99.3 11/18/20 01:11 102.2 11/18/20 00:00 83 11/18/20 00:00 99.8 83 19 110/76 (87) 98 11/17/20 21:00 Room Air 11/17/20 20:00 99.6 83 17 124/53 (76) 97 11/17/20 20:00 90 11/17/20 16:00 99.3 74 18 130/86 (101) 95 11/17/20 16:00 75 11/17/20 12:00 98.8 71 20 128/85 (99) 94 11/17/20 12:00 76 11/17/20 09:00 Room Air 11/17/20 08:00 99.0 94 18 132/88 (103) 94 11/17/20 08:00 64 Intake and Output 11/17/20 11/18/20 19:00 07:00 Intake Total 120 ml Output Total 550 ml Balance -430 ml Intake Oral 120 ml Output Urine Total 550 ml Laboratory Tests 11/17/20 06:37: White Blood Count 6.7, Red Blood Count 4.65L, Hemoglobin 10.2L, Hematocrit 33.3L , Mean Corpuscular Volume 72L, Mean Corpuscular Hemoglobin 22.0L, Mean Corpuscular Hemoglobin Concent 30.7L, Red Cell Distribution Width 13.8, Platelet Count 193, Mean Platelet Volume 7.6, Neutrophils (%) (Auto) 73.1, Lymphocytes (%) (Auto) 19.2L, Monocytes (%) (Auto) 6.5, Eosinophils (%) (Auto) 0.7, Basophils (%) (Auto) 0.5, Sodium Level 144, Potassium Level 3.6, Chloride Level 111H, Carbon Dioxide Level 24, Anion Gap 9, Blood Urea Nitrogen 39H, Creatinine 3.3H, Estimat Glomerular Filtration Rate 23.4, Glucose Level 134H, Uric Acid 6.6, Calcium Level 7.8L, Phosphorus Level 2.8, Magnesium Level 1.7L, Total Bilirubin 0.4, Aspartate Amino Transf (AST/SGOT) 50H, Alanine Aminotransferase (ALT/SGPT) 23, Alkaline Phosphatase 53, Total Protein 5.9L, Albumin 1.8L, Globulin 4.1, Albumin/Globulin Ratio 0.4L Height (Feet): 5 Height (Inches): 11.00 Weight (Pounds): 138 Objective Current Medications Medications (Trade) Dose Ordered Sig/Aminah Route PRN Reason Start Time Stop Time Status Last Admin Dose Admin Acetaminophen (Tylenol) 500 mg Q4H PRN ORAL Temp >100.5 11/14/20 07:30 12/14/20 07:29 11/18/20 01:11 Dextrose (Dextrose 50%) 25 ml Q30M PRN IV Hypoglycemia 11/14/20 12:00 02/12/21 11:59 Dextrose (Dextrose 50%) 50 ml Q30M PRN IV Hypoglycemia 11/14/20 12:00 02/12/21 11:59 Docusate Sodium (Colace) 100 mg THREE TIMES A DAY ORAL 11/14/20 13:00 12/14/20 12:59 11/17/20 17:11 Insulin Aspart (NovoLOG) BEFORE MEALS AND HS SUBQ 11/16/20 16:30 02/12/21 16:29 11/18/20 05:53 Insulin Aspart (NovoLOG) 4 units NOVOTIAC SUBQ 11/14/20 16:50 02/12/21 16:49 11/17/20 06:37 Insulin Detemir (Levemir) 12 units BEDTIME SUBQ 11/14/20 21:00 02/12/21 20:59 11/16/20 21:59 Pantoprazole (Protonix) 40 mg EVERY 12 HOURS ORAL 11/14/20 11:00 12/14/20 10:59 11/17/20 21:46 Piperacillin Sod/ Tazobactam Sod 3.375 gm/Sodium Chloride 110 ml @ 27.5 mls/hr EVERY 12 HOURS IVPB 11/16/20 09:00 11/21/20 08:59 11/17/20 21:46 Sodium Chloride 1,000 ml @ 75 mls/hr [id number] IV 11/14/20 13:45 12/14/20 13:44 11/17/20 08:25 Tamsulosin HCl (Flomax) 0.4 mg BID ORAL 11/14/20 11:00 12/14/20 10:59 11/17/20 17:11 Assessment/Plan Problem List: (1) Diabetes mellitus out of control ICD Codes: E11.65 - Type 2 diabetes mellitus with hyperglycemia SNOMED: 19491048, 258289937 (2) Hyperkalemia ICD Codes: E87.5 - Hyperkalemia SNOMED: 38384332 (3) Acute kidney failure ICD Codes: N17.9 - Acute kidney failure, unspecified SNOMED: 51897564 (4) Person under investigation for COVID-19 ICD Codes: Z20.822 - Contact with and (suspected) exposure to COVID-19 SNOMED: 363562406 (5) UTI (urinary tract infection) ICD Codes: N39.0 - Urinary tract infection, site not specified SNOMED: 63590976 (6) Pneumonia ICD Codes: J18.9 - Pneumonia, unspecified organism SNOMED: 234800113 Status: progressing Assessment/Plan: reduce Levemir to 8 units qhs DC Novolog 4 units ac tid continue Novolog sliding scale ac Gilbert Irving MD Nov 18, 2020 06:07
--- NOTE | 2020-11-18 06:10 | NUR ---
NURSE NOTES: Dr. Radford discontinued Novolog standing order and decreased Levemir subQ. Will note and endorsed to dayshift.
--- NOTE | 2020-11-18 07:25 | NUR ---
NURSE NOTES: Received patient in bed. Awake, A/O x3. On room air, respirations unlabored. IV in Right AC, infusing IVf as ordered. Bed low and locked, side rails up x2, call light within reach with return demonstration.
--- NOTE | 2020-11-18 07:29 | NUR ---
NURSE HAND-OFF REPORT: Important Events on Shift: Pt had a fever of 102.2F. Relieved with Tylenol PO. No complaint of CP of SOB. Patient Status: Stable Diet: Renal Diet Pending Orders: N Pending Results/Labs: AM Labs Pending MD notification: N Latest Vital Signs: Temperature 99.1 , Pulse 84 , B/P 135 /76 , Respiratory Rate 17 , O2 SAT 96 , Room Air, O2 Flow Rate . EKG Rhythm: Sinus Rhythm Rhythm change?: N Latest Ewing Fall Score: 60 Fall Risk: High Risk Safety Measures: Call light Within Reach, Bed Alarm Zone 1, Side Rails Side Rails x2, Bed position Low and Locked. Fall Precautions: Yellow Socks Yellow Gown Door Sign Patient Fall Education Report given to MILTON Chavez.
[2020-11-18 08:00] VITALS: BP 138/78
[2020-11-18] MEDS: Piperacillin/Tazobactam 3.375 GM in NS 110 ML IVPB SCH (08:51)
[2020-11-18] MEDS: Docusate 100mg cap ORAL SCH ×3 (08:51→17:05)
[2020-11-18] MEDS: Tamsulosin 0.4mg cap ORAL SCH ×2 (08:51→17:05)
--- NOTE | 2020-11-18 11:42 | Infectious Diseases Prog Note ---
Assessment/Plan Assessment/Plan A 1. pneumonia with covid19 2. diabetes mellitus 3. Acute renal failure 4. Anemia P 1. change Zosyn to Rocephin 2. will follow up cultures 3. continue isolation Subjective ROS Limited/Unobtainable: Yes Constitutional: Reports: fever, other - Db=420.2 in am Allergies: Coded Allergies: No Known Allergies (Unverified , 11/14/20) Objective Last 24 Hour Vital Signs Date Time Temp Pulse Resp B/P (MAP) Pulse Ox O2 Delivery O2 Flow Rate FiO2 11/18/20 09:00 Room Air 11/18/20 08:00 99.6 70 20 138/78 (98) 97 11/18/20 08:00 70 11/18/20 04:00 99.1 84 17 135/76 (95) 96 11/18/20 04:00 85 11/18/20 01:45 99.3 11/18/20 01:41 99.3 11/18/20 01:11 102.2 11/18/20 00:00 83 11/18/20 00:00 99.8 83 19 110/76 (87) 98 11/17/20 21:00 Room Air 11/17/20 20:00 99.6 83 17 124/53 (76) 97 11/17/20 20:00 90 11/17/20 16:00 99.3 74 18 130/86 (101) 95 11/17/20 16:00 75 11/17/20 12:00 98.8 71 20 128/85 (99) 94 11/17/20 12:00 76 Height (Feet): 5 Height (Inches): 11.00 Weight (Pounds): 138 HEENT: mucous membranes moist Respiratory/Chest: no respiratory distress, other - on room air O2 Cardiovascular: normal rate Abdomen: soft, non tender Neurologic/Psychiatric: other - sleeping Microbiology Date/Time Source Procedure Growth Status 11/16/20 02:54 Blood Blood Culture - Preliminary NO GROWTH AFTER 48 HOURS Resulted 11/16/20 02:40 Blood Blood Culture - Preliminary NO GROWTH AFTER 48 HOURS Resulted Current Medications Medications (Trade) Dose Ordered Sig/Aminah Route PRN Reason Start Time Stop Time Status Last Admin Dose Admin Acetaminophen (Tylenol) 500 mg Q4H PRN ORAL Temp >100.5 11/14/20 07:30 12/14/20 07:29 11/18/20 01:11 Dextrose (Dextrose 50%) 25 ml Q30M PRN IV Hypoglycemia 11/14/20 12:00 02/12/21 11:59 Dextrose (Dextrose 50%) 50 ml Q30M PRN IV Hypoglycemia 11/14/20 12:00 02/12/21 11:59 Docusate Sodium (Colace) 100 mg THREE TIMES A DAY ORAL 11/14/20 13:00 12/14/20 12:59 11/18/20 08:51 Insulin Aspart (NovoLOG) BEFORE MEALS AND HS SUBQ 11/16/20 16:30 02/12/21 16:29 11/18/20 11:32 Insulin Detemir (Levemir) 8 units BEDTIME SUBQ 11/18/20 21:00 02/12/21 20:59 Pantoprazole (Protonix) 40 mg EVERY 12 HOURS ORAL 11/14/20 11:00 12/14/20 10:59 11/18/20 08:51 Piperacillin Sod/ Tazobactam Sod 3.375 gm/Sodium Chloride 110 ml @ 27.5 mls/hr EVERY 12 HOURS IVPB 11/16/20 09:00 11/21/20 08:59 11/18/20 08:51 Sodium Chloride 1,000 ml @ 75 mls/hr [id number] IV 11/14/20 13:45 12/14/20 13:44 11/18/20 11:23 Tamsulosin HCl (Flomax) 0.4 mg BID ORAL 11/14/20 11:00 12/14/20 10:59 11/18/20 08:51 Gerber Vallejo MD Nov 18, 2020 11:42
--- NOTE | 2020-11-18 11:59 | NUR ---
DISCHARGE PLANNING CLINICALS FAXED TO [facility] [phone] Addendum: 11/18/20 at 1202 by Maribel High CM [facility] Addendum: 11/18/20 at 1322 by Maribel High CM PATIENT ACCEPTED TO [facility] ROOM 28 B NO DC ORDER OF YET
[2020-11-18 12:00] VITALS: BP 130/80
--- NOTE | 2020-11-18 12:27 | Surgery Progress Note ---
Surgery Progress Note Subjective Symptoms: improved, pain absent, tolerating diet, passing flatus Objective Last 24 Hour Vital Signs Date Time Temp Pulse Resp B/P (MAP) Pulse Ox O2 Delivery O2 Flow Rate FiO2 11/18/20 09:00 Room Air 11/18/20 08:00 99.6 70 20 138/78 (98) 97 11/18/20 08:00 70 11/18/20 04:00 99.1 84 17 135/76 (95) 96 11/18/20 04:00 85 11/18/20 01:45 99.3 11/18/20 01:41 99.3 11/18/20 01:11 102.2 11/18/20 00:00 83 11/18/20 00:00 99.8 83 19 110/76 (87) 98 11/17/20 21:00 Room Air 11/17/20 20:00 99.6 83 17 124/53 (76) 97 11/17/20 20:00 90 11/17/20 16:00 99.3 74 18 130/86 (101) 95 11/17/20 16:00 75 I&O Intake and Output 11/17/20 11/18/20 19:00 07:00 Intake Total 120 ml 205 ml Output Total 550 ml 400 ml Balance -430 ml -195 ml Intake Oral 120 ml 130 ml IV Total 75 ml Output Urine Total 550 ml 400 ml # Bowel Movements 1 Cardiovascular: RSR Respiratory: clear Abdomen: soft, non-tender, present bowel sounds, non-distended Extremities: no edema, no tenderness, no cyanosis Plan Problems: (1) Hyperkalemia (2) Acute kidney failure Assessment & Plan: 60-year-old male acute renal failure hyperkalemia renal insufficiency. Patient evaluated is a candidate for temporary hemodialysis access for renal recovery. Currently IV fluids medications and under work-up and assessment for medical management prior to dialysis. If improves will hold on temporary hemodialysis access if worsening will place temporary dialysis access initiate dialysis and if necessary in future considerations of more permanent access. Thank you allowing me to participate in patient's care will follow with recommendations continue trending labs fluids and current medical management labs improved hold on HD line cont fluids (3) Person under investigation for COVID-19 (4) UTI (urinary tract infection) (5) Pneumonia (6) Diabetes mellitus out of control Favian Temple Nov 18, 2020 12:27
[2020-11-18] MEDS: cefTRIAXone 1 GM in D5W 55 ML IVPB SCH (13:22)
--- NOTE | 2020-11-18 13:32 | General Progress Note ---
Subjective ROS Limited/Unobtainable: Yes Allergies: Coded Allergies: No Known Allergies (Unverified , 11/14/20) Objective Last 24 Hour Vital Signs Date Time Temp Pulse Resp B/P (MAP) Pulse Ox O2 Delivery O2 Flow Rate FiO2 11/18/20 09:00 Room Air 11/18/20 08:00 99.6 70 20 138/78 (98) 97 11/18/20 08:00 70 11/18/20 04:00 99.1 84 17 135/76 (95) 96 11/18/20 04:00 85 11/18/20 01:45 99.3 11/18/20 01:41 99.3 11/18/20 01:11 102.2 11/18/20 00:00 83 11/18/20 00:00 99.8 83 19 110/76 (87) 98 11/17/20 21:00 Room Air 11/17/20 20:00 99.6 83 17 124/53 (76) 97 11/17/20 20:00 90 11/17/20 16:00 99.3 74 18 130/86 (101) 95 11/17/20 16:00 75 Intake and Output 11/17/20 11/18/20 19:00 07:00 Intake Total 120 ml 205 ml Output Total 550 ml 400 ml Balance -430 ml -195 ml Intake Oral 120 ml 130 ml IV Total 75 ml Output Urine Total 550 ml 400 ml # Bowel Movements 1 Height (Feet): 5 Height (Inches): 11.00 Weight (Pounds): 138 Assessment/Plan Problem List: (1) Hyperkalemia ICD Codes: E87.5 - Hyperkalemia SNOMED: 86878733 (2) Acute kidney failure ICD Codes: N17.9 - Acute kidney failure, unspecified SNOMED: 73823911 (3) UTI (urinary tract infection) ICD Codes: N39.0 - Urinary tract infection, site not specified SNOMED: 44957672 (4) Pneumonia ICD Codes: J18.9 - Pneumonia, unspecified organism SNOMED: 959744080 (5) Diabetes mellitus out of control ICD Codes: E11.65 - Type 2 diabetes mellitus with hyperglycemia SNOMED: 53595741, 840361386 Status: progressing Assessment/Plan: covid + recurrent fever abx adjustment per dr seay pna uti low k arf on top of cri htn Hira Paul MD Nov 18, 2020 13:32
--- NOTE | 2020-11-18 14:35 | NUR ---
NURSE NOTES: RN received a call from Wade Benjamin (brother in law to the patient, ). Wade states he is on the face sheet along with Arnol Gallagherws as uncle and POA ([phone]). Update provided on patient's current status.
--- NOTE | 2020-11-18 15:12 | Nephrology Progress Note ---
Assessment/Plan Problem List: (1) Acute kidney failure (2) Hyperkalemia (3) Diabetes mellitus out of control (4) Pneumonia (5) UTI (urinary tract infection) Assessment Acute on chronic renal failure Hyperkalemia UTI Pneumonia Diabetes mellitus Plan November 18: No labs drawn today. Renal parameters stable as of yesterday. Will check lab tomorrow. Continue per consultants. November 17: Labs reviewed. Abnormal electrolytes addressed. Serum creatinine 3.3 unchanged. Continue per current treatment plan. November 16: Labs reviewed. Low potassium addressed. Serum creatinine 3.3 unchanged. Continue per current treatment plan. November 15: Labs reviewed. Renal parameters stable. Blood sugar better controlled. Medication list reviewed. Continue per current management. Hyperkalemia resolved. Continue to monitor renal parameters. Previously: Renal diet Kidney ultrasound Kayexalate Flomax Blood pressure and blood sugar in check Subjective ROS Limited/Unobtainable: No Constitutional: Reports: malaise, weakness Objective Objective Last 24 Hour Vital Signs Date Time Temp Pulse Resp B/P (MAP) Pulse Ox O2 Delivery O2 Flow Rate FiO2 11/18/20 12:00 100 11/18/20 12:00 99.0 91 18 130/80 (97) 96 11/18/20 09:00 Room Air 11/18/20 08:00 99.6 70 20 138/78 (98) 97 11/18/20 08:00 70 11/18/20 04:00 99.1 84 17 135/76 (95) 96 11/18/20 04:00 85 11/18/20 01:45 99.3 11/18/20 01:41 99.3 11/18/20 01:11 102.2 11/18/20 00:00 83 11/18/20 00:00 99.8 83 19 110/76 (87) 98 11/17/20 21:00 Room Air 11/17/20 20:00 99.6 83 17 124/53 (76) 97 11/17/20 20:00 90 11/17/20 16:00 99.3 74 18 130/86 (101) 95 11/17/20 16:00 75 Intake and Output 11/17/20 11/18/20 19:00 07:00 Intake Total 120 ml 205 ml Output Total 550 ml 400 ml Balance -430 ml -195 ml Intake Oral 120 ml 130 ml IV Total 75 ml Output Urine Total 550 ml 400 ml # Bowel Movements 1 Current Medications Medications (Trade) Dose Ordered Sig/Aminah Route PRN Reason Start Time Stop Time Status Last Admin Dose Admin Acetaminophen (Tylenol) 500 mg Q4H PRN ORAL Temp >100.5 11/14/20 07:30 12/14/20 07:29 11/18/20 01:11 Ceftriaxone Sodium 1 gm/ Dextrose 55 ml @ 110 mls/hr Q24H IVPB 11/18/20 12:00 11/25/20 11:59 11/18/20 13:22 Dextrose (Dextrose 50%) 25 ml Q30M PRN IV Hypoglycemia 11/14/20 12:00 02/12/21 11:59 Dextrose (Dextrose 50%) 50 ml Q30M PRN IV Hypoglycemia 11/14/20 12:00 02/12/21 11:59 Docusate Sodium (Colace) 100 mg THREE TIMES A DAY ORAL 11/14/20 13:00 12/14/20 12:59 11/18/20 13:22 Insulin Aspart (NovoLOG) BEFORE MEALS AND HS SUBQ 11/16/20 16:30 02/12/21 16:29 11/18/20 11:32 Insulin Detemir (Levemir) 8 units BEDTIME SUBQ 11/18/20 21:00 02/12/21 20:59 Pantoprazole (Protonix) 40 mg EVERY 12 HOURS ORAL 11/14/20 11:00 12/14/20 10:59 11/18/20 08:51 Sodium Chloride 1,000 ml @ 75 mls/hr [id number] IV 11/14/20 13:45 12/14/20 13:44 11/18/20 11:23 Tamsulosin HCl (Flomax) 0.4 mg BID ORAL 11/14/20 11:00 12/14/20 10:59 11/18/20 08:51 No chemistry panel drawn today Height (Feet): 5 Height (Inches): 11.00 Weight (Pounds): 138 General Appearance: no apparent distress, lethargic Cardiovascular: tachycardia Respiratory/Chest: decreased breath sounds Abdomen: distended Meng Cha MD Nov 18, 2020 15:12
--- NOTE | 2020-11-18 15:51 | NUR ---
CASE MANAGEMENT:REVIEW 11/18/20 SI: COVID PNEUMONIA. UTI. JUDD. 99.6 70 20 138/78 96% ON RA IS:IV ROCEPHIN Q24 IVF@ 75/HR LEVEMIR SQ QHS NOVOLOG SQ AC+HS FLOMAX PO BID PROTONIX PO Q12 : TELEMETRY STATUS DCP: REFERRED TO [facility]
[2020-11-18 16:00] VITALS: BP 125/75
--- NOTE | 2020-11-18 17:11 | NUR ---
NURSE NOTES: RN asked patient about POA. Patient confirms Arnol Frey is nephew and POA, and brother in law Wade Benjamin is also involved in his care. Patient alert x3, speaks in clear sentences.
--- NOTE | 2020-11-18 18:56 | NUR ---
NURSE HAND-OFF REPORT: Important Events on Shift:[IV rocephin, DC planning] Patient Status: [FULL CODE] Diet: [renal/CCHO] Pending Orders: [] Pending Results/Labs:[] Pending MD notification:[] Latest Vital Signs: Temperature 98.8 , Pulse 78 , B/P 125 /75 , Respiratory Rate 20 , O2 SAT 97 , Room Air, O2 Flow Rate . Vital Sign Comment: [] EKG Rhythm: Sinus Rhythm Rhythm change?: N MD Notified?: - MD Response: Latest [place] Fall Score: 60 Fall Risk: High Risk Safety Measures: Call light Within Reach, Bed Alarm Zone 1, Side Rails Side Rails x2, Bed position Low and Locked. Fall Precautions: Yellow Socks Yellow Gown Door Sign Patient Fall Education Report given to [Ania ROSE].
--- NOTE | 2020-11-18 19:15 | NUR ---
NURSE NOTES: Received pt and report from MILTON Chavez. Observed pt asleep in bed; arousable to voice. Pt is A/Ox3. drug abuse program coordinator is in placed; pt is currently in NSR (77 bpm). IV site intact, asymptomatic, and patent; running 1/2 NS @75ml/hr. No SOB noted. Pt is on room air, RR at 19; O2 sat 96%. Bed is in the lowest position and locked. Call light and bedside table is within reach. No signs/symptoms of acute distress noted. Will continue plan of care.
[2020-11-18 20:00] VITALS: BP 112/54
[2020-11-18] MEDS: Levemir Flexpen SUBQ SCH (20:58)
--- NOTE | 2020-11-18 21:06 | NUR ---
NURSE NOTES: Pt has poor PO intake. Per dayshift nurse, pt has been refusing meals through out the day. Bedtime BS was 185. Administered half ordered dose of Levemir subQ and Novolog subQ per insulin sliding scale. Offered pt a sandwich and some snacks. Pt refused. Pt had some juice. Will monitor pt closely.
[2020-11-19] VITALS: BP 145/84
--- NOTE | 2020-11-19 00:11 | NUR ---
NURSE NOTES: Notified Dr. Paul that pt has not been eating and is refusing all meals. Nutrition consult ordered per Dr. Paul. Noted.
--- NOTE | 2020-11-19 01:18 | NUR ---
NURSE NOTES: Observed pt asleep in bed. No SOB or acute distress noted. Will continue plan of care.
[2020-11-19 04:00] VITALS: BP 152/79
[2020-11-19] MEDS: Acetaminophen 500mg (ES) tab ORAL PRN ×2 (04:50→16:14)
[2020-11-19] MEDS: NovoLOG Insulin Flexpen SUBQ SCH ×4 (06:14→20:28)
--- NOTE | 2020-11-19 06:20 | General Progress Note ---
Subjective Allergies: Coded Allergies: No Known Allergies (Unverified , 11/14/20) Subjective events noted interval notes reviewed glucose values are stable has not been eating - poor appetite - half dose of Levemir administered Item Value Date Time Bedside Blood Glucose 176 mg/dl H 11/19/20 0614 Bedside Blood Glucose 185 mg/dl H 11/18/20 2100 Bedside Blood Glucose 216 mg/dl H 11/18/20 1706 Bedside Blood Glucose 216 mg/dl H 11/18/20 1132 Bedside Blood Glucose 178 mg/dl H 11/18/20 0630 Objective Last 24 Hour Vital Signs Date Time Temp Pulse Resp B/P (MAP) Pulse Ox O2 Delivery O2 Flow Rate FiO2 11/19/20 05:30 99.1 11/19/20 05:20 99.1 11/19/20 04:00 94 11/19/20 04:00 100.6 82 19 152/79 (103) 94 11/19/20 00:00 78 11/19/20 00:00 99.0 85 19 145/84 (104) 96 11/18/20 21:00 Room Air 11/18/20 20:00 99.2 90 20 112/54 (73) 94 11/18/20 20:00 80 11/18/20 16:00 78 11/18/20 16:00 98.8 79 20 125/75 (92) 97 11/18/20 12:00 100 11/18/20 12:00 99.0 91 18 130/80 (97) 96 11/18/20 09:00 Room Air 11/18/20 08:00 99.6 70 20 138/78 (98) 97 11/18/20 08:00 70 l Intake and Output 11/18/20 11/19/20 19:00 07:00 Intake Total 945 ml 750 ml Output Total 900 ml Balance 45 ml 750 ml Intake Oral 120 ml IV Total 825 ml 750 ml Output Urine Total 900 ml # Bowel Movements 1 Height (Feet): 5 Height (Inches): 11.00 Weight (Pounds): 138 Objective Current Medications Medications (Trade) Dose Ordered Sig/Aminah Route PRN Reason Start Time Stop Time Status Last Admin Dose Admin Acetaminophen (Tylenol) 500 mg Q4H PRN ORAL Temp >100.5 11/14/20 07:30 12/14/20 07:29 11/19/20 04:50 Ceftriaxone Sodium 1 gm/ Dextrose 55 ml @ 110 mls/hr Q24H IVPB 11/18/20 12:00 11/25/20 11:59 11/18/20 13:22 Dextrose (Dextrose 50%) 25 ml Q30M PRN IV Hypoglycemia 11/14/20 12:00 02/12/21 11:59 Dextrose (Dextrose 50%) 50 ml Q30M PRN IV Hypoglycemia 11/14/20 12:00 02/12/21 11:59 Docusate Sodium (Colace) 100 mg THREE TIMES A DAY ORAL 11/14/20 13:00 12/14/20 12:59 11/18/20 17:05 Insulin Aspart (NovoLOG) BEFORE MEALS AND HS SUBQ 11/16/20 16:30 02/12/21 16:29 11/19/20 06:14 Insulin Detemir (Levemir) 8 units BEDTIME SUBQ 11/18/20 21:00 02/12/21 20:59 11/18/20 20:58 Pantoprazole (Protonix) 40 mg EVERY 12 HOURS ORAL 11/14/20 11:00 12/14/20 10:59 11/18/20 20:56 Sodium Chloride 1,000 ml @ 75 mls/hr [id number] IV 11/14/20 13:45 12/14/20 13:44 11/19/20 00:30 Tamsulosin HCl (Flomax) 0.4 mg BID ORAL 11/14/20 11:00 12/14/20 10:59 11/18/20 17:05 Assessment/Plan Problem List: (1) Diabetes mellitus out of control ICD Codes: E11.65 - Type 2 diabetes mellitus with hyperglycemia SNOMED: 18388953, 260000621 (2) Hyperkalemia ICD Codes: E87.5 - Hyperkalemia SNOMED: 30207585 (3) Acute kidney failure ICD Codes: N17.9 - Acute kidney failure, unspecified SNOMED: 11800558 (4) Person under investigation for COVID-19 ICD Codes: Z20.822 - Contact with and (suspected) exposure to COVID-19 SNOMED: 330833272 (5) UTI (urinary tract infection) ICD Codes: N39.0 - Urinary tract infection, site not specified SNOMED: 42278733 (6) Pneumonia ICD Codes: J18.9 - Pneumonia, unspecified organism SNOMED: 362903197 Status: progressing Assessment/Plan: continue Levemir 8 units qhs no need for mealtime Novolog continue Novolog sliding scale ac Gilbert Irving MD Nov 19, 2020 06:20
--- NOTE | 2020-11-19 07:47 | NUR ---
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 Nutrition consult ordered per Dr. Paul. Patient Status: Stable Diet: Renal Diet Pending Orders: N Pending Results/Labs: AM Labs Pending MD notification: N Latest Vital Signs: Temperature 99.1 , Pulse 82 , B/P 152 /79 , Respiratory Rate 19 , O2 SAT 94 , Room Air, O2 Flow Rate . EKG Rhythm: Sinus Rhythm Rhythm change?: N Latest Layton Fall Score: 60 Fall Risk: High Risk Safety Measures: Call light Within Reach, Bed Alarm Zone 1, Side Rails Side Rails x2, Bed position Low and Locked. Fall Precautions: Yellow Socks Yellow Gown Door Sign Patient Fall Education Report given to MILTON Hammonds.
--- NOTE | 2020-11-19 07:51 | NUR ---
NURSE NOTES: Received report from MILTON Jorge. Patient observed to be asleep in bed, currently on room air no s.sx of SOB/Distress. Patient placed on contact and droplet precaution for (+) covid. Patient with IV site located on RAC gauge 20 running 1/2 ns @ 75 cc/hr. IV site observed to be dry, patent and intact. No s/sx of redness or swelling. Bed placed on lowest and locked, call light placed within reach and will continue to monitor for any changes in patient's condition.
[2020-11-19 08:00] VITALS: BP 140/69
[2020-11-19] MEDS: Tamsulosin 0.4mg cap ORAL SCH ×3 (08:08→17:08)
[2020-11-19] MEDS: Docusate 100mg cap ORAL SCH ×5 (08:08→17:08)
[2020-11-19 08:57] LABS: BASOPHILS % (AUTO) 1.9 % (0.0-2.0); EOSINOPHILS % (AUTO) 2.3 % (0.0-3.0); HEMATOCRIT 33.6 % (42.0-52.0); HEMOGLOBIN 10.2 G/DL (14.2-18.0); LYMPHOCYTES % (AUTO) 13.6 % (20.0-45.0); MEAN CORPUSCULAR VOLUME 71 FL (80-99); MONOCYTES % (AUTO) 12.1 % (1.0-10.0); PLATELET COUNT 255 K/UL (150-450); RED BLOOD COUNT 4.74 M/UL (4.70-6.10); RED CELL DISTRIBUTION WIDTH 13.9 % (11.6-14.8); WHITE BLOOD COUNT 7.3 K/UL (4.8-10.8)
[2020-11-19 09:19] LABS: ALBUMIN 1.6 G/DL (3.4-5.0); ALBUMIN/GLOBULIN RATIO 0.3 (1.0-2.7); BILIRUBIN,TOTAL 0.4 MG/DL (0.2-1.0); CREATININE 2.8 MG/DL (0.55-1.30); POTASSIUM 3.7 MMOL/L (3.5-5.1)
[2020-11-19 09:22] LABS: PHOSPHORUS 2.2 MG/DL (2.5-4.9)
[2020-11-19] MEDS ORDERED: CEFTRIAXONE1 G1 IVPB (09:46)
--- NOTE | 2020-11-19 09:55 | NUR ---
RD ASSESSMENT & RECOMMENDATIONS SEE CARE ACTIVITY FOR COMPLETE ASSESSMENT DAILY ESTIMATED NEEDS: Needs based on JUDD, DM/ 52kg abw 25-30 kcals/kg 3203-6020 total kcals 0.8-1.0 g protein/kg 42-52 g total protein 25-30 mL/kg 9211-0681 total fluid mLs NUTRITION DIAGNOSIS: Altered nutrition related lab values R/T diabetes, JUDD as evidenced by A1C 8.2, elev BG and POC glu (154 202 157 103 140) improved w/ insulin regimen, elev creat (5.2-> 3.3), elev K upon adm -> now low 3.4. CURRENT DIET:RENAL, CCHO MED PO DIET RECOMMENDATIONS: liberalized Regular diet w/ poor intake ADDITIONAL RECOMMENDATIONS: * Calibrated bedscale wt * Monitor BGs closely for hypoglycemia w/ poor PO * Add Glucerna TID w/ poor PO (220kcal/10g prot each) * Monitor renal fxn and lytes: improving renal fxn, hyperkalemia resolved -> rec liberalizing diet from renal to Regular for improved PO acceptance * Monitor renal labs, need for Nepro vs Glucerna
--- NOTE | 2020-11-19 10:09 | Surgery Progress Note ---
Surgery Progress Note Subjective Symptoms: improved, tolerating diet, passing flatus Objective Last 24 Hour Vital Signs Date Time Temp Pulse Resp B/P (MAP) Pulse Ox O2 Delivery O2 Flow Rate FiO2 11/19/20 09:00 68 11/19/20 09:00 Room Air 11/19/20 08:00 98.4 75 18 140/69 (92) 75 11/19/20 05:30 99.1 11/19/20 05:20 99.1 11/19/20 04:00 94 11/19/20 04:00 100.6 82 19 152/79 (103) 94 11/19/20 00:00 78 11/19/20 00:00 99.0 85 19 145/84 (104) 96 11/18/20 21:00 Room Air 11/18/20 20:00 99.2 90 20 112/54 (73) 94 11/18/20 20:00 80 11/18/20 16:00 78 11/18/20 16:00 98.8 79 20 125/75 (92) 97 11/18/20 12:00 100 11/18/20 12:00 99.0 91 18 130/80 (97) 96 I&O Intake and Output 11/18/20 11/19/20 19:00 07:00 Intake Total 945 ml 1125 ml Output Total 900 ml 500 ml Balance 45 ml 625 ml Intake Oral 120 ml 300 ml IV Total 825 ml 825 ml Output Urine Total 900 ml 500 ml # Bowel Movements 2 Cardiovascular: RSR Respiratory: decreased breath sounds Abdomen: soft, non-tender, present bowel sounds, non-distended Extremities: no tenderness, no cyanosis Laboratory Tests Test 11/18/20 11:27 11/18/20 17:05 11/18/20 20:50 11/19/20 05:49 POC Whole Blood Glucose Pending Pending 185 MG/DL (74-106) H 176 MG/DL (74-106) H Test 11/19/20 08:40 White Blood Count 7.3 K/UL (4.8-10.8) Red Blood Count 4.74 M/UL (4.70-6.10) Hemoglobin 10.2 G/DL (14.2-18.0) L Hematocrit 33.6 % (42.0-52.0) L Mean Corpuscular Volume 71 FL (80-99) L Mean Corpuscular Hemoglobin 21.5 PG (27.0-31.0) L Mean Corpuscular Hemoglobin Concent 30.3 G/DL (32.0-36.0) L Red Cell Distribution Width 13.9 % (11.6-14.8) Platelet Count 255 K/UL (150-450) Mean Platelet Volume 7.5 FL (6.5-10.1) Neutrophils (%) (Auto) 70.0 % (45.0-75.0) Lymphocytes (%) (Auto) 13.6 % (20.0-45.0) L Monocytes (%) (Auto) 12.1 % (1.0-10.0) H Eosinophils (%) (Auto) 2.3 % (0.0-3.0) Basophils (%) (Auto) 1.9 % (0.0-2.0) Sodium Level 145 MMOL/L (136-145) Potassium Level 3.7 MMOL/L (3.5-5.1) Chloride Level 111 MMOL/L (98-107) H Carbon Dioxide Level 21 MMOL/L (21-32) Anion Gap 13 mmol/L (5-15) Blood Urea Nitrogen 31 mg/dL (7-18) H Creatinine 2.8 MG/DL (0.55-1.30) H Estimat Glomerular Filtration Rate 28.2 mL/min (>60) Glucose Level 176 MG/DL (74-106) H Uric Acid 5.1 MG/DL (2.6-7.2) Calcium Level 8.0 MG/DL (8.5-10.1) L Phosphorus Level 2.2 MG/DL (2.5-4.9) L Magnesium Level 1.7 MG/DL (1.8-2.4) L Total Bilirubin 0.4 MG/DL (0.2-1.0) Aspartate Amino Transf (AST/SGOT) 41 U/L (15-37) H Alanine Aminotransferase (ALT/SGPT) 23 U/L (12-78) Alkaline Phosphatase 56 U/L (46-116) Total Protein 6.2 G/DL (6.4-8.2) L Albumin 1.6 G/DL (3.4-5.0) L Globulin 4.6 g/dL Albumin/Globulin Ratio 0.3 (1.0-2.7) L Plan Problems: (1) Hyperkalemia (2) Acute kidney failure Assessment & Plan: 60-year-old male acute renal failure hyperkalemia renal insufficiency. Patient evaluated is a candidate for temporary hemodialysis access for renal recovery. Currently IV fluids medications and under work-up and assessment for medical management prior to dialysis. If improves will hold on temporary hemodialysis access if worsening will place temporary dialysis access initiate dialysis and if necessary in future considerations of more permanent access. Thank you allowing me to participate in patient's care will follow with recommendations continue trending labs fluids and current medical management labs improved hold on HD line cont fluids DAILY ESTIMATED NEEDS: Needs based on JUDD, DM/ 52kg abw 25-30 kcals/kg 7335-1857 total kcals 0.8-1.0 g protein/kg 42-52 g total protein 25-30 mL/kg 9276-6871 total fluid mLs NUTRITION DIAGNOSIS: Altered nutrition related lab values R/T diabetes, JUDD as evidenced by A1C 8.2, elev BG and POC glu (154 202 157 103 140) improved w/ insulin regimen, elev creat (5.2-> 3.3), elev K upon adm -> now low 3.4. CURRENT DIET:RENAL, CCHO MED PO DIET RECOMMENDATIONS: liberalized Regular diet w/ poor intake ADDITIONAL RECOMMENDATIONS: * Calibrated bedscale wt * Monitor BGs closely for hypoglycemia w/ poor PO * Add Glucerna TID w/ poor PO (220kcal/10g prot each) * Monitor renal fxn and lytes: improving renal fxn, hyperkalemia resolved -> rec liberalizing diet from renal to Regular for improved PO acceptance * Monitor renal labs, need for Nepro vs Glucerna (3) Person under investigation for COVID-19 (4) UTI (urinary tract infection) (5) Pneumonia (6) Diabetes mellitus out of control Favian Temple Nov 19, 2020 10:09
--- NOTE | 2020-11-19 10:25 | NUR ---
NURSE NOTES: Received discharge orders from Dr. Paul to d/c hosp meds and continue home meds. Keep IV for continuous atb tx at SNF and keep espinal upon d/c to snf. Orders noted and carried out.
[2020-11-19] MEDS: cefTRIAXone 1 GM in D5W 55 ML IVPB SCH (11:08)
[2020-11-19] MEDS ORDERED: Potassium Phosphate 20 MM in NS 275 ML IV ONE (11:30)
[2020-11-19 12:00] VITALS: BP 138/67
--- NOTE | 2020-11-19 13:43 | Nephrology Progress Note ---
Assessment/Plan Problem List: (1) Acute kidney failure (2) Hyperkalemia (3) Diabetes mellitus out of control (4) Pneumonia (5) UTI (urinary tract infection) Assessment Acute on chronic renal failure Hyperkalemia UTI Pneumonia Diabetes mellitus Plan November 19: Labs reviewed. Creatinine lowered to 2.8. Abnormal electrolytes addressed. Continue per current treatment plan. November 18: No labs drawn today. Renal parameters stable as of yesterday. Will check lab tomorrow. Continue per consultants. November 17: Labs reviewed. Abnormal electrolytes addressed. Serum creatinine 3.3 unchanged. Continue per current treatment plan. November 16: Labs reviewed. Low potassium addressed. Serum creatinine 3.3 unchanged. Continue per current treatment plan. November 15: Labs reviewed. Renal parameters stable. Blood sugar better controlled. Medication list reviewed. Continue per current management. Hyperkalemia resolved. Continue to monitor renal parameters. Previously: Renal diet Kidney ultrasound Kayexalate Flomax Blood pressure and blood sugar in check Subjective ROS Limited/Unobtainable: Yes Objective Objective Last 24 Hour Vital Signs Date Time Temp Pulse Resp B/P (MAP) Pulse Ox O2 Delivery O2 Flow Rate FiO2 11/19/20 12:00 98.2 78 17 138/67 (90) 94 11/19/20 12:00 74 11/19/20 09:00 68 11/19/20 09:00 Room Air 11/19/20 08:00 98.4 75 18 140/69 (92) 93 11/19/20 05:30 99.1 11/19/20 05:20 99.1 11/19/20 04:00 94 11/19/20 04:00 100.6 82 19 152/79 (103) 94 11/19/20 00:00 78 11/19/20 00:00 99.0 85 19 145/84 (104) 96 11/18/20 21:00 Room Air 11/18/20 20:00 99.2 90 20 112/54 (73) 94 11/18/20 20:00 80 11/18/20 16:00 78 11/18/20 16:00 98.8 79 20 125/75 (92) 97 Intake and Output 11/18/20 11/19/20 19:00 07:00 Intake Total 945 ml 1125 ml Output Total 900 ml 500 ml Balance 45 ml 625 ml Intake Oral 120 ml 300 ml IV Total 825 ml 825 ml Output Urine Total 900 ml 500 ml # Bowel Movements 2 Current Medications Medications (Trade) Dose Ordered Sig/Aminah Route PRN Reason Start Time Stop Time Status Last Admin Dose Admin Acetaminophen (Tylenol) 500 mg Q4H PRN ORAL Temp >100.5 11/14/20 07:30 12/14/20 07:29 11/19/20 04:50 Ceftriaxone Sodium 1 gm/ Dextrose 55 ml @ 110 mls/hr Q24H IVPB 11/18/20 12:00 11/25/20 11:59 11/19/20 11:08 Dextrose (Dextrose 50%) 25 ml Q30M PRN IV Hypoglycemia 11/14/20 12:00 02/12/21 11:59 Dextrose (Dextrose 50%) 50 ml Q30M PRN IV Hypoglycemia 11/14/20 12:00 02/12/21 11:59 Docusate Sodium (Colace) 100 mg THREE TIMES A DAY ORAL 11/14/20 13:00 12/14/20 12:59 11/18/20 17:05 Insulin Aspart (NovoLOG) BEFORE MEALS AND HS SUBQ 11/16/20 16:30 02/12/21 16:29 11/19/20 11:33 Insulin Detemir (Levemir) 8 units BEDTIME SUBQ 11/18/20 21:00 02/12/21 20:59 11/18/20 20:58 Pantoprazole (Protonix) 40 mg EVERY 12 HOURS ORAL 11/14/20 11:00 12/14/20 10:59 11/18/20 20:56 Potassium Phosphate 20 mm/ Sodium Chloride 281.6667 ml @ 46.944 m... ONCE ONCE IV 11/19/20 11:30 11/19/20 17:29 11/19/20 11:32 Sodium Chloride 1,000 ml @ 75 mls/hr [id number] IV 11/14/20 13:45 12/14/20 13:44 11/19/20 13:01 Tamsulosin HCl (Flomax) 0.4 mg BID ORAL 11/14/20 11:00 12/14/20 10:59 11/18/20 17:05 Laboratory Tests 11/18/20 17:05: POC Whole Blood Glucose [Pending] 11/18/20 20:50: POC Whole Blood Glucose 185H 11/19/20 05:49: POC Whole Blood Glucose 176H 11/19/20 08:40: White Blood Count 7.3, Red Blood Count 4.74, Hemoglobin 10.2L, Hematocrit 33.6L, Mean Corpuscular Volume 71L, Mean Corpuscular Hemoglobin 21.5L, Mean Corpuscular Hemoglobin Concent 30.3L, Red Cell Distribution Width 13.9, Platelet Count 255, Mean Platelet Volume 7.5, Neutrophils (%) (Auto) 70.0, Lymphocytes (%) (Auto) 13.6L, Monocytes (%) (Auto) 12.1H, Eosinophils (%) (Auto) 2.3, B asophils (%) (Auto) 1.9, Sodium Level 145, Potassium Level 3.7, Chloride Level 111H, Carbon Dioxide Level 21, Anion Gap 13, Blood Urea Nitrogen 31H, Creatinine 2.8H, Estimat Glomerular Filtration Rate 28.2, Glucose Level 176H, Uric Acid 5.1, Calcium Level 8.0L, Phosphorus Level 2.2L, Magnesium Level 1.7L, Total Bilirubin 0.4, Aspartate Amino Transf (AST/SGOT) 41H, Alanine Aminotransferase (ALT/SGPT) 23, Alkaline Phosphatase 56, Total Protein 6.2L, Albumin 1.6L, Globulin 4.6, Albumin/Globulin Ratio 0.3L 11/19/20 11:25: POC Whole Blood Glucose 153H Height (Feet): 5 Height (Inches): 11.00 Weight (Pounds): 138 General Appearance: no apparent distress Cardiovascular: normal rate Respiratory/Chest: decreased breath sounds Abdomen: distended Meng Cha MD Nov 19, 2020 13:43
--- NOTE | 2020-11-19 14:02 | Infectious Diseases Prog Note ---
Assessment/Plan Assessment/Plan A 1. pneumonia with covid19 2. diabetes mellitus 3. Acute renal failure 4. Anemia P 1. continue Rocephin 2. agree with discharge 3. continue isolation Subjective ROS Limited/Unobtainable: Yes Constitutional: Reports: fever, other - in am Allergies: Coded Allergies: No Known Allergies (Unverified , 11/14/20) Objective Last 24 Hour Vital Signs Date Time Temp Pulse Resp B/P (MAP) Pulse Ox O2 Delivery O2 Flow Rate FiO2 11/19/20 12:00 98.2 78 17 138/67 (90) 94 11/19/20 12:00 74 11/19/20 09:00 68 11/19/20 09:00 Room Air 11/19/20 08:00 98.4 75 18 140/69 (92) 93 11/19/20 05:30 99.1 11/19/20 05:20 99.1 11/19/20 04:00 94 11/19/20 04:00 100.6 82 19 152/79 (103) 94 11/19/20 00:00 78 11/19/20 00:00 99.0 85 19 145/84 (104) 96 11/18/20 21:00 Room Air 11/18/20 20:00 99.2 90 20 112/54 (73) 94 11/18/20 20:00 80 11/18/20 16:00 78 11/18/20 16:00 98.8 79 20 125/75 (92) 97 Height (Feet): 5 Height (Inches): 11.00 Weight (Pounds): 138 HEENT: mucous membranes moist Respiratory/Chest: no respiratory distress Cardiovascular: normal rate Abdomen: soft, non tender Neurologic/Psychiatric: other - sleeping Laboratory Tests Test 11/18/20 17:05 11/18/20 20:50 11/19/20 05:49 11/19/20 08:40 POC Whole Blood Glucose Pending 185 MG/DL (74-106) H 176 MG/DL (74-106) H White Blood Count 7.3 K/UL (4.8-10.8) Red Blood Count 4.74 M/UL (4.70-6.10) Hemoglobin 10.2 G/DL (14.2-18.0) L Hematocrit 33.6 % (42.0-52.0) L Mean Corpuscular Volume 71 FL (80-99) L Mean Corpuscular Hemoglobin 21.5 PG (27.0-31.0) L Mean Corpuscular Hemoglobin Concent 30.3 G/DL (32.0-36.0) L Red Cell Distribution Width 13.9 % (11.6-14.8) Platelet Count 255 K/UL (150-450) Mean Platelet Volume 7.5 FL (6.5-10.1) Neutrophils (%) (Auto) 70.0 % (45.0-75.0) Lymphocytes (%) (Auto) 13.6 % (20.0-45.0) L Monocytes (%) (Auto) 12.1 % (1.0-10.0) H Eosinophils (%) (Auto) 2.3 % (0.0-3.0) Basophils (%) (Auto) 1.9 % (0.0-2.0) Sodium Level 145 MMOL/L (136-145) Potassium Level 3.7 MMOL/L (3.5-5.1) Chloride Level 111 MMOL/L (98-107) H Carbon Dioxide Level 21 MMOL/L (21-32) Anion Gap 13 mmol/L (5-15) Blood Urea Nitrogen 31 mg/dL (7-18) H Creatinine 2.8 MG/DL (0.55-1.30) H Estimat Glomerular Filtration Rate 28.2 mL/min (>60) Glucose Level 176 MG/DL (74-106) H Uric Acid 5.1 MG/DL (2.6-7.2) Calcium Level 8.0 MG/DL (8.5-10.1) L Phosphorus Level 2.2 MG/DL (2.5-4.9) L Magnesium Level 1.7 MG/DL (1.8-2.4) L Total Bilirubin 0.4 MG/DL (0.2-1.0) Aspartate Amino Transf (AST/SGOT) 41 U/L (15-37) H Alanine Aminotransferase (ALT/SGPT) 23 U/L (12-78) Alkaline Phosphatase 56 U/L (46-116) Total Protein 6.2 G/DL (6.4-8.2) L Albumin 1.6 G/DL (3.4-5.0) L Globulin 4.6 g/dL Albumin/Globulin Ratio 0.3 (1.0-2.7) L Test 11/19/20 11:25 POC Whole Blood Glucose 153 MG/DL (74-106) H Current Medications Medications (Trade) Dose Ordered Sig/Aminah Route PRN Reason Start Time Stop Time Status Last Admin Dose Admin Acetaminophen (Tylenol) 500 mg Q4H PRN ORAL Temp >100.5 11/14/20 07:30 12/14/20 07:29 11/19/20 04:50 Ceftriaxone Sodium 1 gm/ Dextrose 55 ml @ 110 mls/hr Q24H IVPB 11/18/20 12:00 11/25/20 11:59 11/19/20 11:08 Dextrose (Dextrose 50%) 25 ml Q30M PRN IV Hypoglycemia 11/14/20 12:00 02/12/21 11:59 Dextrose (Dextrose 50%) 50 ml Q30M PRN IV Hypoglycemia 11/14/20 12:00 02/12/21 11:59 Docusate Sodium (Colace) 100 mg THREE TIMES A DAY ORAL 11/14/20 13:00 12/14/20 12:59 11/18/20 17:05 Insulin Aspart (NovoLOG) BEFORE MEALS AND HS SUBQ 11/16/20 16:30 02/12/21 16:29 11/19/20 11:33 Insulin Detemir (Levemir) 8 units BEDTIME SUBQ 11/18/20 21:00 02/12/21 20:59 11/18/20 20:58 Magnesium Sulfate 100 ml @ 100 mls/hr Q1H IVPB 11/19/20 14:00 11/19/20 15:59 Pantoprazole (Protonix) 40 mg EVERY 12 HOURS ORAL 11/14/20 11:00 12/14/20 10:59 11/18/20 20:56 Potassium Phosphate 20 mm/ Sodium Chloride 281.6667 ml @ 46.944 m... ONCE ONCE IV 11/19/20 11:30 11/19/20 17:29 11/19/20 11:32 Sodium Chloride 1,000 ml @ 75 mls/hr [id number] IV 11/14/20 13:45 12/14/20 13:44 11/19/20 13:01 Tamsulosin HCl (Flomax) 0.4 mg BID ORAL 11/14/20 11:00 12/14/20 10:59 11/18/20 17:05 Gerber Vallejo MD Nov 19, 2020 14:02
[2020-11-19 16:00] VITALS: BP 140/67
--- NOTE | 2020-11-19 16:34 | NUR ---
*-*DISCHARGE PLANNED*-* PATIENT HAS ACCEPTED AND WILL BE DISCHARGE TO: [facility] P: [phone] FOR NURSE TO NURSE REPORT ROOM# 54.[facility] TRANSPORTATION SET FOR 6PM S/W NISHA [id number]. S/W PATIENTS BROTHER VICKI SAMSON WHO IS PEDRO AGREEMENT WITH DISCHARGE PLAN.
--- NOTE | 2020-11-19 19:27 | NUR ---
NURSE HAND-OFF REPORT: Important Events on Shift:PATIENT WILL BE D/C Patient Status: STABLE Diet: RENAL Pending Orders: N.A Pending Results/Labs:N.A Pending MD notification:N.A Latest Vital Signs: Temperature 99.6 , Pulse 83 , B/P 140 /67 , Respiratory Rate 17 , O2 SAT 93 , Room Air, O2 Flow Rate . Vital Sign Comment: STABLE EKG Rhythm: Sinus Rhythm Rhythm change?: N MD Notified?: - MD Response: Latest Layton Fall Score: 60 Fall Risk: High Risk Safety Measures: Call light Within Reach, Bed Alarm Zone 1, Side Rails Side Rails x2, Bed position Low and Locked. Fall Precautions: Yellow Socks Yellow Gown Door Sign Patient Fall Education Report given to candice Cobos.
[2020-11-19 20:00] VITALS: BP 150/85
[2020-11-19] MEDS: Levemir Flexpen SUBQ SCH (20:30)
--- NOTE | 2020-11-19 20:45 | General Progress Note ---
Subjective ROS Limited/Unobtainable: Yes Allergies: Coded Allergies: No Known Allergies (Unverified , 11/14/20) Objective Last 24 Hour Vital Signs Date Time Temp Pulse Resp B/P (MAP) Pulse Ox O2 Delivery O2 Flow Rate FiO2 11/19/20 16:44 99.6 11/19/20 16:00 83 11/19/20 16:00 100.3 80 17 140/67 (91) 93 11/19/20 12:00 98.2 78 17 138/67 (90) 94 11/19/20 12:00 74 11/19/20 09:00 68 11/19/20 09:00 Room Air 11/19/20 08:00 98.4 75 18 140/69 (92) 93 11/19/20 05:30 99.1 11/19/20 05:20 99.1 11/19/20 04:00 94 11/19/20 04:00 100.6 82 19 152/79 (103) 94 11/19/20 00:00 78 11/19/20 00:00 99.0 85 19 145/84 (104) 96 11/18/20 21:00 Room Air Intake and Output 11/18/20 11/19/20 19:00 07:00 Intake Total 945 ml 1125 ml Output Total 900 ml 500 ml Balance 45 ml 625 ml Intake Oral 120 ml 300 ml IV Total 825 ml 825 ml Output Urine Total 900 ml 500 ml # Bowel Movements 2 Laboratory Tests 11/18/20 20:50: POC Whole Blood Glucose 185H 11/19/20 05:49: POC Whole Blood Glucose 176H 11/19/20 08:40: White Blood Count 7.3, Red Blood Count 4.74, Hemoglobin 10.2L, Hematocrit 33.6L, Mean Corpuscular Volume 71L, Mean Corpuscular Hemoglobin 21.5L, Mean Corpuscular Hemoglobin Concent 30.3L, Red Cell Distribution Width 13.9, Platelet Count 255, Mean Platelet Volume 7.5, Neutrophils (%) (Auto) 70.0, Lymphocytes (%) (Auto) 13.6L, Monocytes (%) (Auto) 12.1H, Eosinophils (%) (Auto) 2.3, Basophils (%) (Auto) 1.9, Sodium Level 145, Potassium Level 3.7, Chloride Level 111H, Carbon Dioxide Level 21, Anion Gap 13, Blood Urea Nitrogen 31H, Creatinine 2.8H, Estimat Glomerular Filtration Rate 28.2, Glucose Level 176H, Uric Acid 5.1, Calcium Level 8.0L, Phosphorus Level 2.2L, Magnesium Level 1.7L, Total Bilirubin 0.4, Aspartate Amino Transf (AST/SGOT) 41H, Alanine Aminotransferase (ALT/SGPT) 23, Alkaline Phosphatase 56, Total Protein 6.2L, Albumin 1.6L, Globulin 4.6, Albumin/Globulin Ratio 0.3L 11/19/20 11:25: POC Whole Blood Glucose 153H 11/19/20 16:38: POC Whole Blood Glucose 178H Height (Feet): 5 Height (Inches): 11.00 Weight (Pounds): 138 Assessment/Plan Problem List: (1) Hyperkalemia ICD Codes: E87.5 - Hyperkalemia SNOMED: 18018148 (2) Acute kidney failure ICD Codes: N17.9 - Acute kidney failure, unspecified SNOMED: 89825674 (3) UTI (urinary tract infection) ICD Codes: N39.0 - Urinary tract infection, site not specified SNOMED: 64281916 (4) Pneumonia ICD Codes: J18.9 - Pneumonia, unspecified organism SNOMED: 247478329 (5) Diabetes mellitus out of control ICD Codes: E11.65 - Type 2 diabetes mellitus with hyperglycemia SNOMED: 39206075, 736636294 Status: progressing Assessment/Plan: covid + recurrent fever to snf for continuation of iv abx anf to finish off quarran supportive care poor po intake pna uti low k arf on top of cri htn Hira Paul MD Nov 19, 2020 20:45
[2020-11-19] MEDS ORDERED: 1/2 NS 1000ml IV ONE (20:59)
--- NOTE | 2020-11-19 21:00 | NUR ---
NURSE NOTES: [facility] came to pickup pt to be discharged to [facility] room #54C. Pt in stable condition. VSS. Belongings brought with pt. Pt running Sinus Rhythm. color television console monitor removed from pt. Pt discharged without incident.
--- NOTE | 2020-11-24 15:00 | Discharge Summary ---
Discharge Summary Discharge Summary _ Date of admission: 11/14/2020 Date of discharge: 11/19/[address] Paul History of Present Illness and Brief Hospital Course Mr. Hnaey is a 60-year-old male with past medical history of diabetes mellitus, who presented to the ED for generalized weakness. Patient reported he had not t aken insulin for 1 day. Patient reported shaking chills and cough but denied fever, nausea, or vomiting. EKG was nonischemic but showed slightly peaked T waves. Chest x-ray was notable for left lobe infiltrates. Patient also had evidence of UTI. Patient was started on ceftriaxone and azithromycin. Given signs of renal failure with elevated potassium, patient was given calcium, insulin, and bicarb. Patient was admitted to the hospital for further management. Given the chest x-ray findings, patient was continued on antibiotics for pneumonia coverage. Patient tested negative for COVID-19 via PCR. Urine cultures and blood cultures were negative. Patient initially presented with acute on chronic renal failure. Patient was started on renal diet. Renal ultrasound showed no acute findings. Temporary hemodialysis access was considered but given the improvement of the renal parameters, hemodialysis access was not initiated. Abnormal electrolytes were addressed as needed. Patient presented with agitated mood, blunted affect, and disorganized thought process. Patient was evaluated by a psychiatrist who started him on Ativan. Patient was medically stable for discharge and was discharged back to [facility] on 11/[facility]/2020. Patient was discharged back to SNF for continuation of IV antibiotics. Consultants: Endocrinology Dr. Irving Infectious disease Dr. Vallejo Surgery Dr. Temple Nephrology Dr. Regalado Discharge Condition Improved and stable Discharge Diet Renal diet Final diagnoses COVID-19 pneumonia Diabetes mellitus Acute on chronic renal failure, stage IV Anemia Hyperkalemia UTI Schizophrenia I have been assigned to dictate discharge summary for this account. I was not involved in the patient's management Lorne Caballero Nov 24, 2020 15:00
== END 2020-11-19 21:00 | DRG 177 ==
LOC: EMR 01:43 → 2E 03:03 → EDBEDREQSVC 03:09 → EDBEDREQ 03:26 → 2E 11-18 01:05
DX: U07.1 COVID-19 (principal); J12.82 Pneumonia due to coronavirus disease 2019; N39.0 Urinary tract infection, site not specified; N17.9 Acute kidney failure, unspecified; N18.4 Chronic kidney disease, stage 4 (severe); I12.9 Hypertensive chronic kidney disease with stage 1 through stage 4 chronic kidney disease, or unspecified chronic kidney disease; E87.5 Hyperkalemia; Z79.4 Long term (current) use of insulin; E11.65 Type 2 diabetes mellitus with hyperglycemia; D64.9 Anemia, unspecified; F20.9 Schizophrenia, unspecified; Z91.14 Patient's other noncompliance with medication regimen
CPT/HCPCS: 36415; 71045; 76770; 80053; 80061; 80307; 81003; 82306; 82436; 82550; 82570; 82607; 82728; 82746; 82962; 82977; 83036; 83540; 83550; 83735; 83880; 84100; 84133; 84300; 84443; 84484; 84550; 85025; 86140; 87040; 87086; 93005; 96361; 96365; 96367; 96375; 99291; G0480; J1815; J7030; J8499; S5561